=== PATIENT | female | born 1970 | race Caucasian/White ===

== ENCOUNTER → 2018-01-14 19:10 | Outpatient (CLI) | payer SELFPAY ==
[2018-01-19 03:07] LABS: HSV 1 By PCR Negative (Negative)
[2018-01-21 10:33] LABS: HSV 2 By PCR Positive (Negative)
== END ==
PROVIDERS: Family Provider Preventive Medicine Occupational Medicine; PCP Preventive Medicine Occupational Medicine; Visit Provider Obstetrics & Gynecology
DX: N94.89 Other specified conditions associated with female genital organs and menstrual cycle (principal); R30.0 Dysuria
CPT/HCPCS: 87086; 87529

== ENCOUNTER → 2018-08-22 10:26 | Outpatient (CLI) | payer BC, SELFPAY ==
--- NOTE | 2018-08-22 10:35 | RAD_ITS ---
STUDY: X-RAY - LUMBAR SPINE REASON FOR EXAM: Female, 48 years old. Low back pain TECHNIQUE: 5 view(s) of the lumbar spine were obtained. COMPARISON: 2015 FINDINGS: Normal lumbar lordosis. There is a rotatory scoliosis. There is a normal alignment of the vertebrae in the lateral view. Normal vertebral bodies and endplates. Mild disc space narrowing. There is no demonstrated fracture. The soft tissue structures are unremarkable. RAD/L/S Spine Min 4 Views IMPRESSION: Mild degenerative changes, no demonstrated fracture or suspicious osseous lesion Electronically Signed: Phil Koch MD at 10:21 EST , Service support ,
== END ==
LOC: RAD 10:32
PROVIDERS: Family Provider Preventive Medicine Occupational Medicine; PCP Preventive Medicine Occupational Medicine; Referring Provider Preventive Medicine Occupational Medicine; Visit Provider Preventive Medicine Occupational Medicine
DX: M51.36 Other intervertebral disc degeneration, lumbar region (principal)
CPT/HCPCS: 72110

== ENCOUNTER → 2018-09-11 07:51 | Outpatient (CLI) | payer BC, SELFPAY ==
--- NOTE | 2018-09-11 09:31 | NEURO_ITS ---
NCS and/or EMG Patient Report Ordering Doctor: Abhijit Luna DATE OF SERVICE: 09/11/18 Ashley Black is a 48 year old female presents for electrodiagnostic testing of the upper limbs. She has chief complaint of numbness in both hands, worse on the left side. Electrodiagnostic findings: Median motor nerve demonstrates prolonged distal latency with normal amplitude bilaterally. Reduced left median motor conduction velocity. Normal ulnar motor response bilaterally. Normal median and ulnar F- wave. Prolonged median sensory latencies noted bilaterally. Normal ulnar and radial sensory responses. Needle EMG testing shows no evidence of denervation with normal motor unit action potentials. Electrodiagnostic impression: This is an abnormal study in the upper limbs. 1. Electrodiagnostic findings demonstrate bilateral median mononeuropathy. This is consistent with a mild right carpal tunnel syndrome and a moderate left carpal tunnel syndrome. If there are any further questions, please do not hesitate to contact me.
== END ==
LOC: PSN 07:51
PROVIDERS: Family Provider Preventive Medicine Occupational Medicine; PCP Preventive Medicine Occupational Medicine; Referring Provider Preventive Medicine Occupational Medicine; Visit Provider Preventive Medicine Occupational Medicine
DX: G56.03 Carpal tunnel syndrome, bilateral upper limbs (principal)
CPT/HCPCS: 95886; 95913

== ENCOUNTER 2019-04-08 08:30 | Outpatient (RCR) | payer BC, SELFPAY ==
--- NOTE | 2019-02-24 10:09 | HP.OTEVAL_ITS ---
Patient's Visit Information ECHO ALBERTS is a 48 year old F, referred to Occupational Therapy by Buster Sandoval PA-C, with a diagnosis of left thumb cmc arthritis. Date of Evaluation: 02/21/19 Occupational Therapist: Darling Victor, GIORGIO/Corinne, CHT - Subjective Subjective: This 48 year old female was seen for OT eval following a left CMC arthroplasty / pt states she attempted conservative measures and they were not helpful. SX 01-24-19 cast removed today and pt is in need of custom orthosis to allow for CMC healing. Pt states she would like to return to her PLOF as soon as possible. - Pain left thumb 2 Pain Intensity Range: 0, 4 - Objective Objective/Observation: while pt resting UE in lap therapist noted wrist in a ulnar dev. with MP at slight hyper ext. when asked pt to place arm on table top pt needing placement as she must have been positioned with slight wrist ulnar dev. when therapist asked pt stated it was in cast that way, states her arm is not use to being free. - ROM CMC: right 25 left 15 MP: right 50 left 25 IP: right 70 left 45 - Quick DASH-Disab of Arm,Shoulder& Hand Quick DASH Score: 68.3325 - Goals Goal:100% adherence to protocol: Yes Comment: CMC arthroplasty Goal:Daily scar massage when approriate: Yes Goal:ROM equal to unaffected hand: Yes Goal:Medical Record Clerk/Pinch strength at least 75% of unaffected hand: Yes Goal:No pain with affected hand use: Yes Goal:Decrease scar hypersensitivity: Yes - Rehabilitation General Assessment: Pt demo with limited functional ROM, pain and weakness. Due to the limitations with pts left UE at this time requires more assistance with ADLs and IADLs. pt would benefit from skilled OT services 1-2 xweek for 6 weeks to return pts ROM and strength to return to her PLOF with use of left UE with ADLs and IADLs. Today therapist fabricated custom orthosis placing support over CMC, MP allowing for IP flex. pt instructed to use with heavy tasks, when she is out of the house and sleeping, as well as skin care and precausitons. pt demo understanding of use and precautions. pt ed. on AROM of wrist, forearm and digits, scar mtg and given handout. pt demo understanding of ex, orthosis use and precautions. pt agrees to POC. Rehabilitation Potential: Good - Anticipated Interventions Anticipated Interventions: A/AAROM/PROM, Strengthening, Scar Care, Triggerpoint Release, Desensitization, Modalities, Orthoses, Joint Protection/Energy Conservation, ADL Training - Visit Plan Frequency: 1-2x /Week Duration: 6 Weeks TEXT: Thank you for the opportunity to evaluate your patient. For Medicare and Medicare HMO plans, please review the plan of care and approve it. It will need to be FAXED BACK to us at [phone] for Medicare purposes. Please let me know if there are questions or concerns regarding this plan of care. Physician Signature: Date:
--- NOTE | 2019-04-08 08:52 | HP.OTDCSUM_ITS ---
HP - OT D/C Summary It has been my pleasure to treat ECHO ALBERTS under orders from Buster Sandoval PA-C, for the diagnosis of left thumb cmc arthritis for a total of 6 visit(s). Please see the following information for a summary of their discharge status. - Overall Improvement % Improvement: 80 - Objective Objective/Function: left attending pathologist 55# left attending pathologist strength 65#. Left IP 55* MP 35*. CMC 15*. pt report increase ind iwth ADLs and IADLS. pt was seen for 6 OT visit s- she gained functional ROM but continues to have a MP instability with pinch/use with left hand. At this time pt is not painful just a feeling of stiffness. - Goals Patient Goals: Regain Mobility, Regain Strength, Decrease Pain, Return to Work, Decrease Swelling/Stiffness, Use Hand/Wrist/Arm Normally Again Goal:100% adherence to protocol: Yes Goal:Daily scar massage when approriate: Yes Goal:ROM equal to unaffected hand: Yes Goal:Breaker Mechanic/Pinch strength at least 75% of unaffected hand: Yes Goal:No pain with affected hand use: Yes Goal:Decrease scar hypersensitivity: Yes - Plan Plan: pt D/C - D/C Information If there are questions or concerns regarding this patient's occupational therapy, please fell free to call me at [phone]. Thank you for the referral of this patient. Sincerely, Darling Victor, OTR/L, CHT
== END 2019-04-08 19:00 | disposition home or self-care (01) ==
LOC: OT 08:30
PROVIDERS: Family Provider Preventive Medicine Occupational Medicine; PCP Preventive Medicine Occupational Medicine; Referring Provider Physician Assistant Surgical; Visit Provider Physician Assistant Surgical
DX: M18.12 Unilateral primary osteoarthritis of first carpometacarpal joint, left hand (principal); G56.02 Carpal tunnel syndrome, left upper limb
CPT/HCPCS: 97035; 97110; 97140; 97166; 97168; 97760

== ENCOUNTER → 2020-10-25 07:15 | Outpatient (CLI) | payer BC, SELFPAY ==
[2020-10-11 08:25] VITALS: BMI 25.0
--- NOTE | 2020-10-25 07:16 | MRI_ITS ---
STUDY: MRI LUMBAR SPINE WITHOUT CONTRAST REASON FOR EXAM: Female, 50 years old. pain TECHNIQUE: Standardized fat and water weighted pulse sequences were obtained in the sagittal and axial planes. COMPARISON: 03/28/2016 FINDINGS: T12-L1: Normal endplates. Normal disc height, hydration and morphology. Normal bilateral facet joints. Normal central canal and bilateral lateral recesses. Normal bilateral intervertebral neural foramina. Normal lumbar lordosis. Mild levoscoliosis centered at L4. Normal conus medullaris that terminates at the L1/L2. Acute microtrabecular stress reaction of the pedicles of L4 and L5. L1-2: Normal endplates. Normal disc height, hydration and morphology. Normal bilateral facet joints. Normal central canal and bilateral lateral recesses. Normal bilateral intervertebral neural foramina. L2-3: Normal endplates. Normal disc height, hydration and morphology. Normal bilateral facet joints. Normal central canal and bilateral lateral recesses. Normal bilateral intervertebral neural foramina. L3-4: Normal endplates. Normal disc height, hydration and morphology. Normal bilateral facet joints. Normal central canal and bilateral lateral recesses. Normal bilateral intervertebral neural foramina. L4-5: Moderate bilateral facet hypertrophy with fluid in the facet joints consistent with instability and mild ligament flavum hypertrophy. No change in the moderate broad disc protrusion which produces moderate spinal stenosis with moderate bilateral lateral recess stenosis with abutment of the L5 nerve roots bilaterally and moderate bilateral neural foraminal stenosis with abutment of the exiting L4 nerve roots bilaterally. L5-S1: Status post posterior decompression. 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 5 mm of anterolisthesis of L5 on S1 consistent with grade 1 spondylolisthesis. Mild broad disc protrusion produces mild spinal stenosis relieved by posterior decompression and moderate bilateral neural foraminal stenosis which is unchanged when compared with the prior study. Normal visualized sacral ala. Normal visualized paraspinous soft tissue structures. MRI/Spine Lumbar (Routine) IMPRESSION: No change from 03/28/2016. Electronically Signed: Kane Grimes MD at 9:27 EDT Tel , Service support ,
== END ==
PROVIDERS: PCP Preventive Medicine Occupational Medicine; Referring Provider Orthopaedic Surgery; Visit Provider Orthopaedic Surgery
DX: M43.17 Spondylolisthesis, lumbosacral region (principal); M54.16 Radiculopathy, lumbar region; M54.5 Low back pain
CPT/HCPCS: 72148

== ENCOUNTER 2020-12-23 14:06 | Inpatient (IN) | payer BC, SELFPAY ==
--- NOTE | 2020-12-14 09:33 | EKG12_ITS ---
Test Reason : PRE-OP Blood Pressure : / mmHG Vent. Rate : 077 BPM Atrial Rate : 077 BPM P-R Int : 134 ms QRS Dur : 074 ms QT Int : 354 ms P-R-T Axes : 073 067 050 degrees QTc Int : 400 ms Normal sinus rhythm Normal ECG Confirmed by PAULA WU, COURT ([id number]), editor publications ANJELICA LUCAS ([id number]) on 12/15/2020 1:04:25 PM Referred By: Pelon Holt Confirmed By:COURT MITCHELL MD
[2020-12-14 10:45] LABS: Absolute Lymphocyte Count 1.73 X10^3/uL (0.83-4.51); Absolute Neutrophil Count 4.2 X10^3/uL (2.0-7.7); Basophil# 0.07 X10^3/uL; Basophil% 1.1 % (0-1); Eosinophil# 0.13 X10^3/uL; Hematocrit 38.6 % (37-47); Hemoglobin 12.4 g/dL (12.0-15.0); Lymphocyte # 1.73 X10^3/ul (0.83-4.51); Lymphocyte % 26.2 % (19-41); Mean Corp Hgb Conc 32.1 g/dL (32-36); Mean Corpuscular Hgb 30.6 pg (27.0-32.0); Mean Corpuscular Volume 95.3 fL (81-99); Mean Platelet Vol. 9.2 fl (6.2-12.0); Monocyte# 0.41 X10^3/uL; Monocyte% 6.2 % (0-10); NRBC Flagged by Analyzer 0 % (0-5); Neutrophil # 4.24 X10^3/uL (2.7-7.7); Neutrophil % 64.2 % (47-70); Platelet Count 381 K/mm3 (150-450); RBC Distribution Width CV 12.3 % (11.6-14.6); RBC Distribution Width SD 43.3 fl (35.1-43.9); Red Blood Count 4.05 M/mm3 (4.2-5.4); White Blood Count 6.6 K/mm3 (4.4-11.0)
[2020-12-14 11:10] LABS: Anion Gap 5 (5-15); BUN 10 mg/dL (7-18); BUN/Creat Ratio 10.1 RATIO (10-20); Calcium,Total 9.2 mg/dL (8.5-10.1); Chloride 107 mmol/L (98-107); Creatinine, Serum 0.99 mg/dL (0.55-1.02); EST Glomerular Filtration Rate 63 mL/min (>60); Est Glom Filt Rate - Afr Amer 76 mL/min (>60); Glucose 84 mg/dL (74-106); Potassium 4.1 mmol/L (3.5-5.1); Sodium Level 139 mmol/L (136-145)
[2020-12-14 11:15] LABS: Magnesium 2.1 mg/dL (1.6-2.6)
[2020-12-14 11:43] LABS: HIV - WCH Non-Reactive (Nonreactive)
[2020-12-15 08:46] VITALS: BMI 25.0
[2020-12-15 09:07] LABS: HEPATITIS B SURFACE AG Negative (Negative); Hepatitis A AB, Total Negative (Negative); Hepatitis A IgM Antibody Negative (Negative); Hepatitis B Core AB IgM Negative (Negative); Hepatitis B Core Ab Total Negative (Negative); Hepatitis C Ab <0.1 s/co ratio (0.0-0.9)
[2020-12-15 12:53] LABS: Hep B Surface Antibodies Non Reactive (.)
[2020-12-23] VITALS (15 sets, daily range): BP systolic 107–130; BP diastolic 55–95; PULSE 58–92; RESP 14–20; TEMP 36.1–36.9; O2SAT 98–100; BMI 23.6
[2020-12-23] MEDS: Lactated Ringers 1,000 ML 100 ML IV ×3 (06:00→15:29)
[2020-12-23] MEDS: Acetaminophen 500 MG Tablet 1000 MG PO (06:20)
[2020-12-23 07:01] LABS: Bedside Glucose 171 mg/dL (70-110)
--- NOTE | 2020-12-23 07:30 | RAD_ITS ---
STUDY: X-RAY - LUMBAR SPINE REASON FOR EXAM: Female, 50 years old. POSTERIOR FUSION L4-S1 TECHNIQUE: 2 view(s) of the lumbar spine were obtained. COMPARISON: None FINDINGS: Intraoperative imaging provided for posterior fusion. Posterior fusion at the L4 and S1 level. RAD/Lumbar Spine 2 or 3 Views IMPRESSION: Posterior fusion at the L4 and S1 level. Electronically Signed: Dutch Whitfield MD at 13:00 EDT , Service support ,
[2020-12-23] MEDS: Heparin 10,000 UNITS/10 ML Vial 10000 UNITS (07:35)
[2020-12-23] MEDS: THROMBIN (RECOMBINANT) 20,000 UNIT VIAL 20000 UNIT TOPICAL (08:00)
[2020-12-23] MEDS: Cefazolin 2 GM in 0.9% Normal Saline 100 ML IV (08:22)
--- NOTE | 2020-12-23 12:39 | OP.PCM_ITS ---
Report of Operation Date of Procedure: 12/23/20 Description of Procedure: Preoperative diagnosis: Failed L5-S1 fusion with instability Postoperative diagnosis: The same Procedures: #1 bilateral lateral fusion L5-S1 CPT code #11268 #2 internal pedicle fixation L5-S1 CPT code #52979 #3 internal pedicle fixation L4-5 CPT code #36444/51 #4 bilateral lateral fusion L4-5 CPT code #96403/51 Surgeon: Dr. Holt assistant store manager: ANA Sarmiento and Alisha PEREZ Anesthesia: General endotracheal anesthesia administered by [facility] Estimated blood loss: 125 cc Drains: None Complications: Dural leak Procedure: Patient was taken to the OR where she was placed under general endotracheal anesthesia was a Sims catheter was inserted and neuro monitoring established all their leads. The patient was then placed in the prone position on the Mundo frame on the Michael table. After appropriate positioning with care to protect her bony prominences her breasts her brachial plexus her ulnar nerves bilaterally her facial features the back was then prepped and draped in standard fashion. I then made a longitudinal incision near the old incision subcutaneous tissues were incised the length of the skin incision. We then began elevating the soft tissues on the left side off of the lamina of L for the lamina of L5 which was impossible to tell because of the old fusion and the lamina of S1 which again was full of of old fusion mass. Was in the midline where the dural leak was done as we released the soft tissues of the old open decompression small amount of CSF leakage was found. I simply closed it along with the scar tissue over the top of it and running fashion with 5-0 Prolene this completely stopped the leak. Continued on then elevated the paravertebral muscles off the bone mass at S1 at L5 and L4 using cautery the self-retaining super slide retractors were then put in place. Once in place I began identif trey all the landmarks or at least attempted to identify landmarks for the pedicle fixation note that there were no landmarks seen at L5 because of the old fusion and the fusion mass there was also no landmarks seen at S1 the only landmark but facet joint was seen at L4-5 and the transverse process was also observed. Knowing that this would be the easiest pedicle screw to insert we simply marked the area taken it intraoperative fluoroscopy that demonstrated that we had a good angle in the center of the pedicle. Decided to simply skip L5 altogether as there were no landmarks available. We did go down to the S1 pedicle as this was much larger of course and was able to identify it mainly by a guessing as to where he would be and then I broke the cortex with a bur and use the shifter under fluoroscopy to identify it. The screw was put in first. Once the insertion point was identified I used a 5 mm tap and entered with a 6.5 millimeter screw. Note that the we had neuro monitoring and of course the velocity was measured and was found to be quite satisfactory. I then moved back up to L4 on the left side on that predetermined point we then inserted the shifter was found to be in good position on fluoroscopy and I went ahead and tapped the hole with 5.5 millimeter screw note that this was a much smaller pedicle. Once the tap was done I then probed the hole to make sure there were no perforations of the wall which there were none. We then entered with the 5.540 mm screw. Again it was checked with the testing probe and was found to be satisfactory. We attempted to put screws on the opposite side however we were having trouble with the insertion point at L4 and even trouble with the insertion point of S1. We did S1 first and were able to tap it followed by probe which was satisfactory and insertion of the screw. Again it was tested by neuro monitoring was found to be satisfactory. Because of the rotoscoliosis our attempt to find the pedicle of 4 on the right side failed and in fact we actually broke the outer cortex a bit in our attempt to do so. We simply removed the S1 screw on the right side then and was satisfied just to have the fixation on the left side. We then prepared for the fusion by using the bur to bur the old fusion mass and the transverse processes of 4 bilaterally and the facets also. We then used SPARC bone in the gutters. On the old mass we used demineralized bone matrix sponges that were soaked in the patient's own stem cells. Note that these the stem cells were obtained from the patient's right iliac crest given the telecom field technician and spun down and concentrated and given back to us. We then placed these over the remaining old bone mass. Note that because of the dural leak we decided not to put a drain in but we had excellent hemostasis at the time. We did put placed DuraGen directly over the area where the leak had occurred however there was no more leaking of course. Nonetheless we covered it with the DuraGen and began closure. We then closed the lumbar fascia using [id number] suture with #1 Vicryl followed by closure of subcutaneous tissues with a 2-0 Vicryl and 0 Vicryl in interrupted fashion and the skin was approximated using skin clips. The patient was then recovered in the OR and was moved to her hospital bed and taken to recovery. This is Dr. Holt dictating thank you.
--- NOTE | 2020-12-23 12:40 | PCM.HP.BLA ---
History and Physical Date of Admission: 12/23/20 Intake Vital Signs 12/15/20 08:46 BMI 25.0 Intake Visit Reasons: lumbar spine Allergies No Known Allergies Allergy (Verified 12/09/20 13:32) Medications fluoxetine 20 mg capsule 20 mg PO DAILY 10/11/20 [History Confirmed 12/15/20] gabapentin 600 mg tablet 1,200 mg PO BID tablet 10/11/20 [History Confirmed 12/15/20] quetiapine 300 mg tablet 300 mg PO DAILY 10/11/20 [History Confirmed 12/15/20] PFSH Medical History (Updated 12/15/20 @ 09:[address] Pelon Holt, DO) Back pain Bipolar disorder h/o teeth removal Injury of back Sjogren's syndrome Wears dentures Surgical History (Updated 10/11/20 @ 09:05 by Diamante Hale) H/O hand surgery H/O: hysterectomy History of lumbar fusion Social History (Updated 10/27/20 @ 13:[address] Pelon Holt, DO) household members: spouse Smoking Status: Never smoker alcohol intake: never what type of physical activity do you participate in: none do you feel safe at home: Yes HPI lumbar spine Details: Parts of this documentation were recorded by a scribe, this documentation accurately reflects the service provided and the decisions made by me, Dr. Pelon Holt, DO 12/15/20 0845. ASHLEY ALBERTS is a 50 year old F here today for F/U on low back pain and she is here to further discuss surgery. She continues to have mid back pain that radiates down the right leg to about her mid gutierrez. Does have some numbness or tingling. Denies any changes in medications or allergies. Ashley returns for follow-up and preop. We discussed the surgery at length what to expect including recovery etc. She is scheduled for surgery on the . We will do an L4-S1 fusion with pedicle fixation. She will need no decompression as she hardly has any leg pain. I suspect that she broke her fusion because she was doing very well prior to her hard fall on the ice in August of this year. We talked about possible risks and complications associated with the surgery including the possibility of , paralysis infection meningitis failed to relieve the symptoms blood clot in the legs blood clot in the lungs myocardial infarction stroke among others. I answered all her questions I will see her again at surgery. Planned procedures: #1 bilateral lateral fusion L5-S1 CPT code #57543 #2 internal pedicle fixation L5-S1 CPT code #92076 #3 internal pedicle fixation L4-5 CPT code #71977/51 #4 bilateral lateral fusion L4-5 CPT code #84157/51 Past medical history: Is already documented in this chart. Review of systems: Is already documented in this chart. Physical examination: Examination of the head reveals that she is normocephalic there are no lesions noted. Examination of the eyes reveals that pupils are equally reactive to light and accommodation extraocular muscles appear intact. Examination of the neck reveals that the trachea is midline and movable there are no masses palpated there is no lymphadenopathy and there is no tenderness. Auscultation of the chest reveals that she is clear in all lung aponte with no adventitious sounds. Auscultation of the heart demonstrates a normal rate and rhythm without murmurs. Palpation of the abdomen reveals it is soft and nontender there are no masses palpated and there is no organomegaly. Examination of the genitalia and breasts was waived. Neurologic exam reveals the cranial nerves II through XII were grossly intact. Examination of the peripheral nervous system demonstrates that she has excellent motor strength in all the major muscle groups of both upper and lower extremities with normal reflexes and no long tract signs. Impression: Broken L5-S1 fusion with grade 1 spondylolisthesis and instability in a degenerated disc at L4-5. Coding Level of Care Code Off vis,est,level 2 Diagnoses Spondylolisthesis of lumbosacral region M43.17 Time Spent (min) 20 Assessment and Plan Assessment and Plan (1) Spondylolisthesis of lumbosacral region: Status: Acute I have re-examined the patient. There are no clinical changes since date of exam.
--- NOTE | 2020-12-23 15:05 | PN.HOSP_ITS ---
Subjective Subjective Consult from Dr. Holt for post-op medical mgmt. Currently, patient is fairly comfortable post-op. Unfortunately on bed rest. Pain is currently tolerable. Objective Data Objective Data Vital Signs: Vital Signs Temp Pulse Resp BP Pulse Ox 36.5 C L 66 18 122/82 H 99 12/23/20 14:48 12/23/20 14:48 12/23/20 14:48 12/23/20 14:48 12/23/20 14:48 Oxygen Flow Rate (L/min) 6 Oxygen Delivery Method Room Air Weight: 68.4 kg Body Mass Index (BMI) 23.6 Intake & Output: Intake and Output for Last 24 Hours 12/21/20 12/22/20 12/23/20 23:59 23:59 23:59 Intake Total 1214.5 / 1214.5 Output Total 385 / 385 Balance 829.5 / 829.5 Lab / Micro Data Result Diagrams: 12/14/20 09:49 12/14/20 09:49 Labs: Laboratory Results - last 24 hr 12/23/20 06:16 POC Glucose 171 H Micro: Microbiology 12/22/20 08:30 Interface Orders SARS-CoV-2 Antigen (Rapid) - Final 12/15/20 09:25 Interface Orders Nasal Screen MRSA/MSSA - Final Radiography Diagnostic Testing: Radiology Impression Lumbar Spine X-Ray 12/23/20 07:30 IMPRESSION: Posterior fusion at the L4 and S1 level. Electronically Signed: Dutch Whitfield MD at 13:00 EDT , Service support , Physical Exam Const alert and oriented x3 HEENT Head and Scalp: normocephalic Neck no lymphadenopathy Resp normal respiratory effort and no use of accessory muscles Cardio regular rate, regular rhythm, S1 normal heart sound and S2 normal heart sound GI normal to inspection, nondistended, normoactive bowel sounds, non-tender and non-distended Extremity normal to inspection Neuro Sensorium / Orientation: awake and alert Psych affect normal Assessment & Plan Assessment/Plan (1) Spondylolisthesis of lumbosacral region: PLAN: 1. Status post bilateral lateral fusion of L5-S1 * Postop day #0 * Management per spine surgery * Currently on bedrest * Patient did receive 20 mg of IV dexamethasone 2. Sjogren's syndrome * Stable * Patient is not on any medications for this * Supportive management * May consider eyedrops as needed or Biotene mouthwash as needed for symptoms associated with this. 3. VTE prophylaxis with SCDs Thank for the consult. The hospital service will follow during this hospitalization. Charges/Coding Visit Charges Inpatient E&M: 13221 Subs Hosp L2
[2020-12-23] MEDS: 0.9% Saline Lock 10 ML Syringe IV ×2 (15:36→18:28)
[2020-12-23] MEDS: Morphine 4 MG/ML Syringe IV ×2 (15:36→18:28)
[2020-12-23] MEDS: Ensure Surgery 237 ML LIQUID PO (16:34)
[2020-12-23] MEDS: Cefazolin 1 GM/50 ML BAG IV ×2 (16:34→23:41)
[2020-12-23] MEDS: oxyCODONE 5 MG Tablet PO ×2 (17:00→22:05)
[2020-12-23] MEDS: diazePAM 5 MG Tablet PO (17:00)
[2020-12-23] MEDS: DiphenhydrAMINE 25 MG Capsule PO (20:57)
[2020-12-23] MEDS: Gabapentin 600 MG Tablet 1200 MG PO (22:06)
[2020-12-23] MEDS: Senna/Docusate Sodium 1 Tablet 2 TABLET PO (22:07)
[2020-12-23] MEDS: Famotidine 20 MG Tablet PO (22:07)
[2020-12-23] MEDS: Zolpidem Tartrate 5 MG Tablet PO (23:39)
[2020-12-24] VITALS (9 sets, daily range): BP systolic 89–131; BP diastolic 46–84; PULSE 81–122; RESP 16–28; TEMP 37.2–37.8; O2SAT 98–100
[2020-12-24] MEDS: diazePAM 5 MG Tablet PO ×2 (01:04→07:21)
[2020-12-24] MEDS: QUEtiapine 100 MG Tablet 300 MG PO ×2 (01:30→23:14)
[2020-12-24] MEDS: oxyCODONE 5 MG Tablet PO ×3 (06:11→17:21)
--- NOTE | 2020-12-24 07:57 | NURSING ---
This nurse aware that Blood sugar was 84 with morning labs.
[2020-12-24] MEDS: Ensure Surgery 237 ML LIQUID PO ×2 (09:12→12:47)
[2020-12-24] MEDS: Gabapentin 600 MG Tablet 1200 MG PO ×2 (09:13→23:15)
[2020-12-24] MEDS: Senna/Docusate Sodium 1 Tablet 2 TABLET PO ×2 (09:13→23:15)
[2020-12-24] MEDS: Famotidine 20 MG Tablet PO ×2 (09:13→23:13)
[2020-12-24] MEDS: FLUoxetine 20 MG Capsule PO (09:13)
[2020-12-24] MEDS: DiphenhydrAMINE 25 MG Capsule PO ×3 (09:21→23:15)
[2020-12-24] MEDS: Morphine 4 MG/ML Syringe IV ×3 (09:22→21:03)
--- NOTE | 2020-12-24 10:45 | CASEMGMT ---
RN GABE Assessment: Face to Face with pt for initial transition planning/care coordination assessment. RN CM introduced self and role at [facility], pt voices understanding and consents to assessment. Pt is A/O x4 and answers all questions appropriately at this time.Pt lying flat in bed as she is on BR in no distress. Care providers, pharmacy, and demographics verified/updated. Admitting Dx: post fusion fixation L4-S1 PCP: Cheryl Specialists: Jonathon, surgeon Preferred Pharmacy: [facility] Insurance: [employer] Prescription Benefit: yes LW/HPOA: Pt denies having a LW/DPOA. LNOK: William Black, ; Elysia Long, mother Living Arrangements: Pt lives with her in a single story house with 3 steps to enter. Pt states normally she is I in ADL's and denies concerns at home. Transportation: Pt normally drives self and denies concerns with transportation. DME/HHC/SNF: Pt denies having any DME, prior history of HH or SNF stay. Pt states she is temporarily going to stay with her mother at time of dc as her works nights. States her mother's home will be easy to access as well as her own. Pt states no further concerns/needs. CM to follow. Advised pt to ask CM if any further question/concerns/needs arise, voices understanding. Pt Goal: Mother's home Plan: Mother's home with family support
[2020-12-24] MEDS: Ondansetron 4 MG/2 ML Vial IV ×2 (12:53→21:03)
[2020-12-24] MEDS: 0.9% Saline Lock 10 ML Syringe IV ×2 (12:53→15:54)
[2020-12-24] MEDS: Calcium Carbonate 500 MG Tablet PO (14:22)
--- NOTE | 2020-12-24 15:18 | PN.HOSP_ITS ---
Subjective Subjective Patient was seen and examined. She complains of abdominal bloatedness. She has not moved her bowels. She denied any fever or chills. Her pain is fairly controlled. Objective Data Objective Data Vital Signs: Vital Signs Temp Pulse Resp BP Pulse Ox 99.7 F H 111 H 28 H 115/46 L 100 12/24/20 14:26 12/24/20 14:26 12/24/20 14:26 12/24/20 14:26 12/24/20 14:26 Oxygen Flow Rate (L/min) 6 Oxygen Delivery Method Room Air Weight: 68.4 kg Body Mass Index (BMI) 23.6 Intake & Output: Intake and Output for Last 24 Hours 12/22/20 12/23/20 12/24/20 23:59 23:59 23:59 Intake Total 3049.49 / 3049.49 1733.33 / 1733.33 Output Total 2685 / 2685 2100 / 2100 Balance 364.49 / 364.49 -366.67 / -366.67 Lab / Micro Data Result Diagrams: 12/14/20 09:49 12/14/20 09:49 Micro: Microbiology 12/22/20 08:30 Interface Orders SARS-CoV-2 Antigen (Rapid) - Final 12/15/20 09:25 Interface Orders Nasal Screen MRSA/MSSA - Final Physical Exam Narrative General: Alert, Oriented x3, Cooperative, No apparent distress, appears anxious HEENT: Atraumatic, PERRLA, EOMI, Normocephalic Oral: Moist Mucosa Neck: Supple Lungs: Normal air movement, Diminished Cardiovascular: Regular rate, Regular Rhythm, Normal S1, Normal S2, No murmurs Abdomen: Bowel Sounds hypoactive, Soft, mild generalised tenderness, no hepato- splenomegaly Extremities: No edema Assessment & Plan Assessment/Plan (1) Spondylolisthesis of lumbosacral region: (2) Ileus: PLAN: 1. POD #1 status post bilateral lateral fusion of L5-S1 Continue with pain control, continue according to neurosurgery recommendations 2. Ileus, postop, will get KUB, keep n.p.o., IV fluids 3. Sjogren's syndrome, continue eye drops Charges/Coding Visit Charges Inpatient E&M: 38923 Subs Hosp L2
[2020-12-24] MEDS: 0.9% Normal Saline 1,000 ML 75 ML IV (15:49)
--- NOTE | 2020-12-24 15:59 | NURSING ---
Dr. Holt is in the room at this time and updated him on recent temp climbing of 99.5 now to 100.1 and recent vital signs. He also is aware of dr. Marley's orders of npo and kub. Dr. Holt is aware that there are Bowel Sounds x4 qauds, no flatus since surgery and abd is distended. Dr. Holt looked at [facility] at this time.
--- NOTE | 2020-12-24 16:18 | RAD_ITS ---
STUDY: X-RAY - ABDOMEN/PELVIS REASON FOR EXAM: Female, 50 years old. Abdominal distension -- Patient needs to lie flat per Neurosurgery TECHNIQUE: Supine and decubitus views of the abdomen and pelvis COMPARISON: None. FINDINGS: Gaseous dilated loops of small large bowel with fecal retention in the right hemicolon. Postoperative changes with midline surgical clips. Likely postoperative ileus and less likely obstruction. RAD/Abd Decub and/or Erect(Portabl IMPRESSION: Likely postoperative ileus with fecal retention in the right hemicolon. No evidence of free air. Electronically Signed: Justice Onofre DO at 22:43 EDT Tel , Service support ,
--- NOTE | 2020-12-24 16:19 | PN.ORTHO_ITS ---
Objective Data Objective Data Vital Signs: Vital Signs Temp Pulse Resp BP Pulse Ox 100.1 F H 108 H 22 H 128/77 H 98 12/24/20 15:56 12/24/20 15:56 12/24/20 15:56 12/24/20 15:56 12/24/20 15:56 Oxygen Flow Rate (L/min) 6 Oxygen Delivery Method Room Air Weight: 150 lb 12.739 oz Body Mass Index (BMI) 23.6 Intake & Output: Intake and Output for Last 24 Hours 12/22/20 12/23/20 12/24/20 23:59 23:59 23:59 Intake Total 3049.49 / 3049.49 1733.33 / 1733.33 Output Total 2685 / 2685 2100 / 2100 Balance 364.49 / 364.49 -366.67 / -366.67 Lab / Micro Data Result Diagrams: 12/14/20 09:49 12/14/20 09:49 Micro: Microbiology 12/22/20 08:30 Interface Orders SARS-CoV-2 Antigen (Rapid) - Final 12/15/20 09:25 Interface Orders Nasal Screen MRSA/MSSA - Final
--- NOTE | 2020-12-24 16:21 | PCM.PN.ORT ---
Subjective Subjective Postop day #1: The patient's main complaint and that of her nurse is that her abdomen is distended. It started early this morning and has gotten perhaps a bit worse now. I suspect that it perhaps is an early ileus. We are about to get a KUB on her. She definitely has air I can tell from palpation. Numbness neurologically she is intact her back of course is is painful is suspected. Dressing is dry. Had a dural leak during the surgery which is why she is flat in bed. I might get her up as early as tomorrow if not it will be Sunday. We will keep an eye on her and her ileus if it indeed is only an ileus. I will see her again tomorrow morning. Objective Data Objective Data Vital Signs: Vital Signs Temp Pulse Resp BP Pulse Ox 100.1 F H 108 H 22 H 128/77 H 98 12/24/20 15:56 12/24/20 15:56 12/24/20 15:56 12/24/20 15:56 12/24/20 15:56 Oxygen Flow Rate (L/min) 6 Oxygen Delivery Method Room Air Weight: 150 lb 12.739 oz Body Mass Index (BMI) 23.6 Intake & Output: Intake and Output for Last 24 Hours 12/22/20 12/23/20 12/24/20 23:59 23:59 23:59 Intake Total 3049.49 / 3049.49 1733.33 / 1733.33 Output Total 2685 / 2685 2100 / 2100 Balance 364.49 / 364.49 -366.67 / -366.67 Lab / Micro Data Result Diagrams: 12/14/20 09:49 12/14/20 09:49 Micro: Microbiology 12/22/20 08:30 Interface Orders SARS-CoV-2 Antigen (Rapid) - Final 12/15/20 09:25 Interface Orders Nasal Screen MRSA/MSSA - Final
[2020-12-25 03:17] VITALS: BP 112/61; PULSE 117; RESP 18; TEMP 37.1; O2SAT 97
[2020-12-25 03:25] VITALS: PULSE 117
[2020-12-25] MEDS: oxyCODONE 5 MG Tablet PO (03:31)
[2020-12-25 05:51] VITALS: PULSE 115
[2020-12-25] MEDS: 0.9% Normal Saline 1,000 ML 75 ML IV ×2 (06:12→18:19)
[2020-12-25] MEDS: Morphine 4 MG/ML Syringe IV ×6 (06:40→22:52)
[2020-12-25 07:26] LABS: Absolute Lymphocyte Count 2.37 X10^3/uL (0.83-4.51); Absolute Neutrophil Count 5.3 X10^3/uL (2.0-7.7); Basophil# 0.03 X10^3/uL; Basophil% 0.3 % (0-1); Eosinophil# 0.05 X10^3/uL; Eosinophils% 0.6 % (0-5); Hematocrit 34.3 % (37-47); Lymphocyte # 2.37 X10^3/ul (0.83-4.51); Lymphocyte % 27.2 % (19-41); Mean Corp Hgb Conc 32.1 g/dL (32-36); Mean Corpuscular Hgb 30.6 pg (27.0-32.0); Mean Corpuscular Volume 95.5 fL (81-99); Mean Platelet Vol. 9.1 fl (6.2-12.0); Monocyte# 0.92 X10^3/uL; Monocyte% 10.6 % (0-10); NRBC Flagged by Analyzer 0 % (0-5); Neutrophil # 5.31 X10^3/uL (2.7-7.7); Neutrophil % 60.8 % (47-70); Platelet Count 266 K/mm3 (150-450); RBC Distribution Width CV 12.2 % (11.6-14.6); RBC Distribution Width SD 42.7 fl (35.1-43.9); Red Blood Count 3.59 M/mm3 (4.2-5.4); White Blood Count 8.7 K/mm3 (4.4-11.0)
[2020-12-25 07:45] LABS: ALB/GLOB Ratio 0.8 RATIO (0.9-2.4); AST(SGOT) 24 U/L (15-37); Alanine Aminotransfer ALT/SGPT 16 U/L (13-56); Albumin, Serum 2.8 g/dL (3.2-5.0); Alkaline Phosphatase 94 U/L (45-117); Anion Gap 4 (5-15); BUN 9 mg/dL (7-18); BUN/Creat Ratio 12.8 RATIO (10-20); Calcium,Total 8.7 mg/dL (8.5-10.1); Chloride 105 mmol/L (98-107); EST Glomerular Filtration Rate 93 mL/min (>60); Est Glom Filt Rate - Afr Amer 113 mL/min (>60); Globulin 3.3 g/dL (2.2-4.2); Glucose 109 mg/dL (74-106); Potassium 3.9 mmol/L (3.5-5.1); Protein, Total 6.1 g/dL (6.4-8.2); Sodium Level 137 mmol/L (136-145)
[2020-12-25 08:00] VITALS: BP 123/63; PULSE 114; RESP 16; TEMP 37.1; O2SAT 95
[2020-12-25] MEDS: Ondansetron 4 MG/2 ML Vial IV (08:06)
--- NOTE | 2020-12-25 09:48 | PN.HOSP_ITS ---
Subjective Subjective Patient was seen and examined. Has some abdominal discomfort. Abdominal distention is slightly better but still persistent. Objective Data Objective Data Vital Signs: Vital Signs Temp Pulse Resp BP Pulse Ox 98.7 F 114 H 16 123/63 H 95 12/25/20 08:00 12/25/20 08:00 12/25/20 08:00 12/25/20 08:00 12/25/20 08:00 Oxygen Flow Rate (L/min) 6 Oxygen Delivery Method Room Air Weight: 68.4 kg Body Mass Index (BMI) 23.6 Intake & Output: Intake and Output for Last 24 Hours 12/23/20 12/24/20 12/25/20 23:59 23:59 23:59 Intake Total 3049.49 / 3049.49 2144.58 / 2144.58 1133.75 / 1133.75 Output Total 2685 / 2685 2900 / 2900 1000 / 1000 Balance 364.49 / 364.49 -755.42 / -755.42 133.75 / 133.75 Lab / Micro Data Result Diagrams: 12/25/20 06:46 12/25/20 06:46 Labs: Laboratory Results - last 24 hr 12/25/20 12/25/20 06:46 06:46 WBC 8.7 RBC 3.59 L Hgb 11.0 L Hct 34.3 L MCV 95.5 MCH 30.6 MCHC 32.1 RDW Std Deviation 42.7 RDW Coeff of Nohelia 12.2 Plt Count 266 MPV 9.1 Immature Gran % (Auto) 0.500 Neut % (Auto) 60.8 Lymph % (Auto) 27.2 [place] % (Auto) 10.6 H Eos % (Auto) 0.6 Baso % (Auto) 0.3 Absolute Neuts (auto) 5.3 Absolute Lymphs (auto) 2.37 Nucleated RBC % 0 Sodium 137 Potassium 3.9 Chloride 105 Carbon Dioxide 28.0 Anion Gap 4 L BUN 9 Creatinine 0.70 Estim Creat Clear Calc 93.50 Est GFR (MDRD) Af Amer 113 Est GFR (MDRD) Non-Af 93 BUN/Creatinine Ratio 12.8 Glucose 109 H Calcium 8.7 Total Bilirubin 0.70 AST 24 ALT 16 Alkaline Phosphatase 94 Total Protein 6.1 L Albumin 2.8 L Globulin 3.3 Albumin/Globulin Ratio 0.8 L Micro: Microbiology 12/22/20 08:30 Interface Orders SARS-CoV-2 Antigen (Rapid) - Final 12/15/20 09:25 Interface Orders Nasal Screen MRSA/MSSA - Final Radiography Diagnostic Testing: Radiology Impression Abdomen X-Ray 12/24/20 16:18 IMPRESSION: Likely postoperative ileus with fecal retention in the right hemicolon. No evidence of free air. Electronically Signed: Justice Onofre at 22:43 EDT Tel , Service support , Physical Exam Narrative General: Alert, Oriented x3, Cooperative, No apparent distress, appears anxious HEENT: Atraumatic, PERRLA, EOMI, Normocephalic Oral: Moist Mucosa Neck: Supple Lungs: Normal air movement, Diminished Cardiovascular: Regular rate, Regular Rhythm, Normal S1, Normal S2, No murmurs Abdomen: Bowel Sounds hypoactive, Soft, mild generalised tenderness, no hepato- splenomegaly Extremities: No edema Assessment & Plan Assessment/Plan (1) Spondylolisthesis of lumbosacral region: (2) Ileus: PLAN: 1. POD #2 status post bilateral lateral fusion of L5-S1, pain is f airly controlled Continue with pain control, continue according to neurosurgery recommendations 2. Ileus, postop, on clear liquid diet, will continue to monitor 3. Constipation, fecal retention seen in the right hemicolon, will give an enema, continue on stool softners 3. Sjogren's syndrome, continue eye drops Charges/Coding Visit Charges Inpatient E&M: 20946 Subs Hosp L2
[2020-12-25 14:10] VITALS: BP 126/69; PULSE 97; RESP 16; TEMP 36.7; O2SAT 95
[2020-12-25] MEDS: Bisacodyl 10 MG Suppository RC (14:20)
[2020-12-25] MEDS: Famotidine 20 MG Tablet PO ×2 (14:24→22:56)
[2020-12-25] MEDS: FLUoxetine 20 MG Capsule PO (14:24)
--- NOTE | 2020-12-25 16:31 | PN.ORTHO_ITS ---
Objective Data Objective Data Vital Signs: Vital Signs Temp Pulse Resp BP Pulse Ox 98.0 F 97 16 126/69 H 95 12/25/20 14:10 12/25/20 14:10 12/25/20 14:10 12/25/20 14:10 12/25/20 14:10 Oxygen Flow Rate (L/min) 6 Oxygen Delivery Method Room Air Weight: 150 lb 12.739 oz Body Mass Index (BMI) 23.6 Intake & Output: Intake and Output for Last 24 Hours 12/23/20 12/24/20 12/25/20 23:59 23:59 23:59 Intake Total 3049.49 / 3049.49 2144.58 / 2144.58 1253.75 / 1253.75 Output Total 2685 / 2685 2900 / 2900 1500 / 1500 Balance 364.49 / 364.49 -755.42 / -755.42 -246.25 / -246.25 Lab / Micro Data Result Diagrams: 12/25/20 06:46 12/25/20 06:46 Labs: Laboratory Results - last 24 hr 12/25/20 12/25/20 06:46 06:46 WBC 8.7 RBC 3.59 L Hgb 11.0 L Hct 34.3 L MCV 95.5 MCH 30.6 MCHC 32.1 RDW Std Deviation 42.7 RDW Coeff of Nohelia 12.2 Plt Count 266 MPV 9.1 Immature Gran % (Auto) 0.500 Neut % (Auto) 60.8 Lymph % (Auto) 27.2 [place] % (Auto) 10.6 H Eos % (Auto) 0.6 Baso % (Auto) 0.3 Absolute Neuts (auto) 5.3 Absolute Lymphs (auto) 2.37 Nucleated RBC % 0 Sodium 137 Potassium 3.9 Chloride 105 Carbon Dioxide 28.0 Anion Gap 4 L BUN 9 Creatinine 0.70 Estim Creat Clear Calc 93.50 Est GFR (MDRD) Af Amer 113 Est GFR (MDRD) Non-Af 93 BUN/Creatinine Ratio 12.8 Glucose 109 H Calcium 8.7 Total Bilirubin 0.70 AST 24 ALT 16 Alkaline Phosphatase 94 Total Protein 6.1 L Albumin 2.8 L Globulin 3.3 Albumin/Globulin Ratio 0.8 L Micro: Microbiology 12/22/20 08:30 Interface Orders SARS-CoV-2 Antigen (Rapid) - Final 12/15/20 09:25 Interface Orders Nasal Screen MRSA/MSSA - Final Radiography Diagnostic Testing: Radiology Impression Abdomen X-Ray 12/24/20 16:18 IMPRESSION: Likely postoperative ileus with fecal retention in the right hemicolon. No evidence of free air. Electronically Signed: Justice Onofre, DO at 22:43 EDT Tel , Service support , Procedure Criteria Elective Risks - COVID COVID Risk Discussion: Postop day #2. Patient is doing better today than yesterday. She actually has some flatulence now that she has not had before. Her back abdomen is still distended. Let her get up today and therapy actually ambulated her. Did fine getting up and was glad to do so. She has not had a spinal headache. Her legs are doing good and she has no leg pain. She states that her back pains not too bad now. I told her she would be able to be home as soon as the ileus is completely cleared. Until then I will have to keep her in the hospital. And her drink clear liquids. At this point progress is satisfac tory. Neurologically she is intact in both lower extremities.
[2020-12-25] MEDS: Acetaminophen 325 MG Tablet 650 MG PO (17:40)
[2020-12-25 22:50] VITALS: BP 110/67; PULSE 83; RESP 18; TEMP 36.9; O2SAT 97
[2020-12-25] MEDS: QUEtiapine 100 MG Tablet 300 MG PO (22:56)
[2020-12-25] MEDS: Gabapentin 600 MG Tablet 1200 MG PO (22:57)
[2020-12-26 03:30] VITALS: BP 114/58; PULSE 105; RESP 16; TEMP 37.4; O2SAT 94
[2020-12-26] MEDS: Morphine 4 MG/ML Syringe IV (03:40)
[2020-12-26] MEDS: 0.9% Normal Saline 1,000 ML 75 ML IV ×2 (07:42→22:02)
[2020-12-26] MEDS: oxyCODONE 5 MG Tablet PO ×3 (07:58→18:19)
[2020-12-26] MEDS: Acetaminophen 325 MG Tablet 650 MG PO ×3 (07:58→18:20)
[2020-12-26] MEDS: Ensure Surgery 237 ML LIQUID PO (07:59)
[2020-12-26] MEDS: DiphenhydrAMINE 25 MG Capsule PO ×3 (08:19→22:02)
--- NOTE | 2020-12-26 08:44 | PN.HOSP_ITS ---
Subjective Subjective Patient was seen and examined. She has had 1 bowel movement. Still has significant abdominal discomfort from distention. No nausea or vomiting. She has been ambulating. Denies any fever or chills. Objective Data Objective Data Vital Signs: Vital Signs Temp Pulse Resp BP Pulse Ox 99.3 F H 105 H 16 114/58 L 94 12/26/20 03:30 12/26/20 03:30 12/26/20 03:30 12/26/20 03:30 12/26/20 03:30 Oxygen Flow Rate (L/min) 6 Oxygen Delivery Method Room Air Weight: 68.4 kg Body Mass Index (BMI) 23.6 Intake & Output: Intake and Output for Last 24 Hours 12/24/20 12/25/20 12/26/20 23:59 23:59 23:59 Intake Total 2144.58 / 2144.58 2402.50 / 2402.50 1000 / 1000 Output Total 2900 / 2900 1575 / 1575 Balance -755.42 / -755.42 827.50 / 827.50 1000 / 1000 Lab / Micro Data Result Diagrams: 12/25/20 06:46 12/25/20 06:46 Micro: Microbiology 12/22/20 08:30 Interface Orders SARS-CoV-2 Antigen (Rapid) - Final 12/15/20 09:25 Interface Orders Nasal Screen MRSA/MSSA - Final Physical Exam Narrative General: Alert, Oriented x3, Cooperative, No apparent distress, appears anxious HEENT: Atraumatic, PERRLA, EOMI, Normocephalic Oral: Moist Mucosa Neck: Supple Lungs: Normal air movement, Diminished Cardiovascular: Regular rate, Regular Rhythm, Normal S1, Normal S2, No murmurs Abdomen: Bowel Sounds hypoactive, Soft, mild generalised tenderness, no hepato- splenomegaly Extremities: No edema Assessment & Plan Assessment/Plan (1) Spondylolisthesis of lumbosacral region: (2) Ileus: PLAN: Summary: Consult for postop medical management -status post bilateral lateral fusion of L5-S1 1. POD #3, status post bilateral lateral fusion of L5-S1, pain is fairly controlled Continue with pain control, continue according to neurosurgery recommendations 2. Ileus, postop, persistent, will keep NPO, get KUB, continue on IV fluids 3. Constipation, fecal retention seen in the right hemicolon, resolving Continue on stool softners 4. Sjogren's syndrome, continue eye drops Charges/Coding Visit Charges Inpatient E&M: 69235 Subs Hosp L2
[2020-12-26 09:30] VITALS: BP 99/59; PULSE 110; RESP 18; TEMP 36.6; O2SAT 100
--- NOTE | 2020-12-26 10:22 | RAD_ITS ---
EXAM: XR ABDOMEN, 2 VIEWS : 1970 CLINICAL INDICATION: persistent ileus TECHNIQUE: Frontal view of the abdomen/pelvis with upright view of the abdomen. This report was created using [employer] report generation technology. COMPARISON: 12/24/2020 FINDINGS: LOWER THORAX: No acute pathology. INTRAPERITONEAL SPACE: No free air. GASTROINTESTINAL TRACT: There is gas seen with in the colon. There is essentially no gas-filled loops of small bowel. Non-obstructive. No bowel or stomach distention. ORGANS: Unremarkable as visualized. No organomegaly. No abnormal calcifications. BONES/JOINTS: Peak hardware is seen in the lower lumbar spine from a recent fusion. SOFT TISSUES: No acute pathology. RAD/Abd Decub and/or Erect(Portabl IMPRESSION: Gas seen within the colon with no gas-filled loops of small bowel on this exam. at 1042 Reported and signed by: Maycol Rachel MD Electronically Signed: Maycol Rachel MD at 10:41 EDT Tel , Service support ,
[2020-12-26] MEDS: Bisacodyl 10 MG Suppository RC (10:55)
[2020-12-26] MEDS: Gabapentin 600 MG Tablet 1200 MG PO ×2 (10:56→21:57)
[2020-12-26] MEDS: FLUoxetine 20 MG Capsule PO (10:56)
[2020-12-26] MEDS: Famotidine 20 MG Tablet PO ×2 (10:57→21:57)
[2020-12-26] MEDS: Senna/Docusate Sodium 1 Tablet 2 TABLET PO (10:57)
[2020-12-26 15:23] VITALS: BP 118/63; PULSE 82; RESP 18; TEMP 37.1; O2SAT 98
--- NOTE | 2020-12-26 16:44 | NURSING ---
DR HERNANDEZ PHONED IN TO GET UPDATE ON PT
[2020-12-26 21:55] VITALS: BP 104/61; PULSE 76; RESP 18; TEMP 37; O2SAT 97
[2020-12-26] MEDS: 0.9% Saline Lock 10 ML Syringe IV (21:56)
[2020-12-26] MEDS: QUEtiapine 100 MG Tablet 300 MG PO (21:57)
[2020-12-27 03:28] VITALS: BP 135/67; PULSE 94; RESP 16; TEMP 36.9; O2SAT 95
[2020-12-27] MEDS: oxyCODONE 5 MG Tablet PO ×4 (03:48→17:39)
[2020-12-27 08:18] VITALS: BP 124/80; PULSE 83; RESP 16; TEMP 36.9; O2SAT 97
[2020-12-27] MEDS: Ensure Surgery 237 ML LIQUID PO ×3 (08:28→17:34)
[2020-12-27] MEDS: Acetaminophen 325 MG Tablet 650 MG PO ×3 (08:28→21:14)
[2020-12-27] MEDS: 0.9% Saline Lock 10 ML Syringe IV ×2 (08:29→17:39)
[2020-12-27] MEDS: Gabapentin 600 MG Tablet 1200 MG PO ×2 (08:29→21:09)
[2020-12-27] MEDS: FLUoxetine 20 MG Capsule PO (08:29)
[2020-12-27] MEDS: Senna/Docusate Sodium 1 Tablet 2 TABLET PO ×2 (08:29→21:10)
[2020-12-27] MEDS: Famotidine 20 MG Tablet PO ×2 (08:29→21:10)
[2020-12-27] MEDS: Bisacodyl 10 MG Suppository RC ×2 (08:29→21:10)
[2020-12-27] MEDS: DiphenhydrAMINE 25 MG Capsule PO ×3 (09:45→21:13)
[2020-12-27] MEDS: 0.9% Normal Saline 1,000 ML 75 ML IV (11:04)
[2020-12-27 13:38] VITALS: BP 124/71; PULSE 97; RESP 18; TEMP 36.4; O2SAT 99
--- NOTE | 2020-12-27 16:14 | PCM.PN.HOSP ---
Subjective Subjective Patient has history of Sjogren syndrome.. Patient also states she has IBS, constipation predominant. Regular bowel movement is once in 3 weeks. She had suppository and enema but without much success. She feels mild achiness in the back otherwise no severe pain. Objective Data Objective Data Vital Signs: Vital Signs Temp Pulse Resp BP Pulse Ox 97.5 F L 97 18 124/71 H 99 12/27/20 13:38 12/27/20 13:38 12/27/20 13:38 12/27/20 13:38 12/27/20 13:38 Oxygen Flow Rate (L/min) 6 Oxygen Delivery Method Room Air Weight: 150 lb 12.739 oz Body Mass Index (BMI) 23.6 Intake & Output: Intake and Output for Last 24 Hours 12/25/20 12/26/20 12/27/20 23:59 23:59 23:59 Intake Total 2402.50 / 2402.50 1999 2327.5 / 2327.5 Output Total 1575 / 1575 1400 / 1400 Balance 827.50 / 827.50 1999 927.5 / 927.5 Lab / Micro Data Result Diagrams: 12/25/20 06:46 12/25/20 06:46 Micro: Microbiology 12/22/20 08:30 Interface Orders SARS-CoV-2 Antigen (Rapid) - Final 12/15/20 09:25 Interface Orders Nasal Screen MRSA/MSSA - Final Physical Exam Narrative General: Alert, Oriented x3, Cooperative HEENT: Atraumatic, PERRLA, EOMI, Normocephalic Oral: No Gingival or Mucosal Lesions/ Ulcerations Neck: Supple, No JVD, Negative Carotid Bruits Lungs: Air entry diminished in bilateral lung bases. No crepitation/rhonchi Cardiovascular: Regular rate, Regular Rhythm, Normal S1, Normal S2, No murmurs Abdomen: Bowel Sounds sluggish, Soft, Non Tender, Non-Distended. No palpable mass : No renal angle tenderness. No suprapubic tenderness. Extremities: No edema, Capillary Refill Less than 3 Seconds Skin: No rashes, No breakdown Musculoskeletal/spine: Lumbar surgical dressing is dry. Mild stiffness on perioperative region. Neurological: Cranial nerves II-XII grossly intact, Deep Tendon Reflexes 2+/4 and Symmetrical, Neuro grossly intact Psych/Mental Status: Normal Affect, Appropriate. Assessment & Plan Assessment/Plan (1) Spondylolisthesis of lumbosacral region: (2) Ileus: PLAN: 1. Failed L5-S1 fusion with instability status post bilateral lateral fusion of L5-S1, and L4-L5: Pain is fairly well controlled. Patient does not have much tenderness. Continue PT and OT 2. Ileus, postop, persistent: Continue Dulcolax suppository and enema. Magnesium citrate is contraindicated. Abdominal x-ray with pelvis ordered for tomorrow a.m. 3. Constipation, fecal retention seen in the right hemicolon, resolving Continue on stool softners 4. Sjogren's syndrome, continue eye drops VTE prophylaxis as per discretion of spine surgeon. Bilateral SCDs
--- NOTE | 2020-12-27 16:38 | PCM.PN.ORT ---
Objective Data Objective Data Vital Signs: Vital Signs Temp Pulse Resp BP Pulse Ox 97.5 F L 97 18 124/71 H 99 12/27/20 13:38 12/27/20 13:38 12/27/20 13:38 12/27/20 13:38 12/27/20 13:38 Oxygen Flow Rate (L/min) 6 Oxygen Delivery Method Room Air Weight: 150 lb 12.739 oz Body Mass Index (BMI) 23.6 Intake & Output: Intake and Output for Last 24 Hours 12/25/20 12/26/20 12/27/20 23:59 23:59 23:59 Intake Total 2402.50 / 2402.50 1999 2327.5 / 2327.5 Output Total 1575 / 1575 1400 / 1400 Balance 827.50 / 827.50 1999 927.5 / 927.5 Lab / Micro Data Result Diagrams: 12/25/20 06:46 12/25/20 06:46 Micro: Microbiology 12/22/20 08:30 Interface Orders SARS-CoV-2 Antigen (Rapid) - Final 12/15/20 09:25 Interface Orders Nasal Screen MRSA/MSSA - Final Procedure Criteria Elective Risks - COVID COVID Risk Discussion: Postop day #4: Patient is doing much better today her ileus is softening up she is passing a lot of flatulence her abdomen feels a whole lot better. She has been walking all over the halls and her back is doing really well. Hospitalist is ordered 1 more KUB which is reasonable at this point. We will plan on probably sending her home tomorrow but for now I am still keeping her on clear liquids to make sure that we do not fall back into a full ileus. I changed her back dressing the incision is dry and healing well progress is satisfactory.
--- NOTE | 2020-12-27 16:40 | RAD_ITS ---
STUDY: X-RAY - ABDOMEN/PELVIS REASON FOR EXAM: Female, 50 years old. Abdominal ileus -- Including pelvis TECHNIQUE: AP supine and upright views of the abdomen and pelvis. COMPARISON: 12/26/2020 FINDINGS: Normal visualized lung bases. Increased gas and air-fluid levels in the small or large bowel. There is no demonstrated free abdominal air. The visualized liver, spleen and kidneys are grossly normal in size and morphology. Skin terrence in the lower abdominal midline. Hardware L5-S1 the left. Normal soft tissue structures. Mild scoliosis. RAD/Abd Inc Decub and/or Erect IMPRESSION: Ileus versus small bowel obstruction Electronically Signed: Bart Parkinson MD at 22:23 EDT , Service support ,
[2020-12-27] MEDS: Bisacodyl 5 MG Tablet PO (17:34)
[2020-12-27 18:56] VITALS: BP 119/71; PULSE 81; RESP 16; TEMP 36.8; O2SAT 98
[2020-12-27] MEDS: QUEtiapine 100 MG Tablet 300 MG PO (21:09)
[2020-12-27 21:19] VITALS: BP 125/65; PULSE 73; RESP 16; TEMP 36.5; O2SAT 100
[2020-12-28] MEDS: 0.9% Normal Saline 1,000 ML 75 ML IV (01:39)
[2020-12-28 02:20] VITALS: BP 92/52; PULSE 85; RESP 16; TEMP 36.7; O2SAT 98
[2020-12-28] MEDS: DiphenhydrAMINE 25 MG Capsule PO ×3 (02:22→11:53)
[2020-12-28] MEDS: Acetaminophen 325 MG Tablet 650 MG PO ×3 (04:17→13:20)
[2020-12-28] MEDS: oxyCODONE 5 MG Tablet PO ×3 (04:17→13:20)
[2020-12-28 08:20] VITALS: BP 120/64; PULSE 82; RESP 18; TEMP 36.6; O2SAT 96
[2020-12-28] MEDS: Ensure Surgery 237 ML LIQUID PO (09:00)
[2020-12-28] MEDS: Famotidine 20 MG Tablet PO (09:01)
[2020-12-28] MEDS: Gabapentin 600 MG Tablet 1200 MG PO (09:01)
[2020-12-28] MEDS: Bisacodyl 10 MG Suppository RC (09:02)
[2020-12-28] MEDS: FLUoxetine 20 MG Capsule PO (09:03)
[2020-12-28] MEDS: Senna/Docusate Sodium 1 Tablet 2 TABLET PO (09:03)
--- NOTE | 2020-12-28 13:08 | PCM.PN.HOSP ---
Subjective Subjective Patient has bowel movement. Back pain is well controlled. Surgical dressing is dry. Objective Data Objective Data Vital Signs: Vital Signs Temp Pulse Resp BP Pulse Ox 97.8 F 82 18 120/64 96 12/28/20 08:20 12/28/20 08:20 12/28/20 08:20 12/28/20 08:20 12/28/20 08:20 Oxygen Flow Rate (L/min) 6 Oxygen Delivery Method Room Air Weight: 150 lb 12.739 oz Body Mass Index (BMI) 23.6 Intake & Output: Intake and Output for Last 24 Hours 12/26/20 12/27/20 12/28/20 23:59 23:59 23:59 Intake Total 1999 3027.5 / 3027.5 1000 / 1000 Output Total 2200 / 2200 200 / 200 Balance 1999 827.5 / 827.5 800 / 800 Lab / Micro Data Result Diagrams: 12/25/20 06:46 12/25/20 06:46 Micro: Microbiology 12/22/20 08:30 Interface Orders SARS-CoV-2 Antigen (Rapid) - Final 12/15/20 09:25 Interface Orders Nasal Screen MRSA/MSSA - Final Radiography Diagnostic Testing: Radiology Impression Abdomen X-Ray 12/27/20 16:40 IMPRESSION: Ileus versus small bowel obstruction Electronically Signed: Bart Parkinson MD at 22:23 EDT , Service support , Physical Exam Narrative General: Alert, Oriented x3, Cooperative HEENT: Atraumatic, PERRLA, EOMI, Normocephalic Oral: No Gingival or Mucosal Lesions/ Ulcerations Neck: Supple, No JVD, Negative Carotid Bruits Lungs: Air entry equal in bilateral lung bases. No crepitation/rhonchi Cardiovascular: Regular rate, Regular Rhythm, Normal S1, Normal S2, No murmurs Abdomen: Bowel Sounds normal, Soft, Non Tender, Non-Distended. No palpable mass : No renal angle tenderness. No suprapubic tenderness. Extremities: No edema, Capillary Refill Less than 3 Seconds Skin: No rashes, No breakdown Musculoskeletal/spine: Lumbar surgical dressing is dry. Mild stiffness on perioperative region. Neurological: Cranial nerves II-XII grossly intact, Deep Tendon Reflexes 2+/4 and Symmetrical, Neuro grossly intact Psych/Mental Status: Normal Affect, Appropriate. Assessment & Plan Assessment/Plan (1) Spondylolisthesis of lumbosacral region: (2) Ileus: PLAN: 1. Failed L5-S1 fusion with instability status post bilateral lateral fusion of L5-S1, and L4-L5: Pain is fairly well controlled. Patient does not have much tenderness. Continue PT and OT 2. Ileus, postop, persistent: Continue Dulcolax suppository and enema. Magnesium citrate is contraindicated. Abdominal x-ray with pelvis ordered for tomorrow a.m. 3. Constipation, fecal retention seen in the right hemicolon, resolving Patient had a bowel movement on bisacodyl besides senna-S. Advised to follow-up with GI as she most probably has IBS constipation predominant. 4. Sjogren's syndrome, continue eye drops VTE prophylaxis as per discretion of spine surgeon. Bilateral SCDs Patient is hemodynamically stable to be discharged. Charges/Coding Visit Charges Inpatient E&M: 52384 Subs Hosp L2
[2020-12-28 15:00] VITALS: BP 129/61; PULSE 71; RESP 18; TEMP 36.6; O2SAT 100
--- NOTE | 2020-12-28 16:06 | PCM.DC ---
Discharge Instructions Follow Up Care Test Results: Test results from this visit will be discussed in further detail at your follow-up appointment, if applicable. Discharge Plan Admission Admit Date/Time: 12/23/20 14:06 Attending Provider: Dane Agrawal Primary Care Provider: Abhijit Luna Consulting Providers: Adrien Owusu Discharge Orders/Prescriptions Prescriptions: New bisacodyl 10 mg Suppository [address] BID PRN (Reason: SEVERE CONSTIPATION) Qty: 0 RF: 0 sennosides-docusate sodium [Stool Softener-Stimulant Laxat] 8.6-50 mg Tablet 2 tab PO BID Qty: 0 RF: 0 Continued gabapentin 600 mg tablet 1,200 mg PO BID RF: 0 fluoxetine [Prozac] 20 mg capsule 20 mg PO DAILY RF: 0 quetiapine [Seroquel] 300 mg tablet 300 mg PO QHS RF: 0 Other Ambulatory Orders: 12 Lead EKG (Routine) Location: None Selected Ordered By: Dr. Pelon Holt Referrals / Follow Up: Abhijit Luna DO [Primary Care Provider] - Micheal Luther MD [NON-STAFF] - Within 2 Weeks (For IBS constipation predominant.) Disposition Disposition (needs filled in before D/C Order can be placed): Home, Self Care
--- NOTE | 2020-12-28 16:10 | PCM.DC ---
Discharge Instructions Diet Discharge Diet: Light diet - advance as tolerated and Soft diet Activity Discharge Activity: May Not Drive and May Shower (shower ) May shower in (days): 2 May resume sexual activity in: 4-6 weeks Weight Bearing Status: Full weight bearing Dressing / Incision Call your doctor if your incision/area has: Continuous Slow Oozing, Increased Pain/ Swelling, Foul Smelling Discharge and Swelling at the incision site Call your doctor if you observe: Fever of 101 or Higher, Shortness of breath, Fainting spells, Chest pain and Uncontrolled pain Remove Dressing in: 1 day Cleanse incision/area with: Soap & Water Follow Up Care Please Follow Up With: Pelon Holt DO When: already has appointment Test Results: Test results from this visit will be discussed in further detail at your follow-up appointment, if applicable. Discharge Plan Admission Admit Date/Time: 12/23/20 14:06 Attending Provider: Dane Agrawal Primary Care Provider: Abhijit Luna Consulting Providers: Adrien Owusu Discharge Orders/Prescriptions Prescriptions: New bisacodyl 10 mg Suppository 10 mg SC BID PRN (Reason: SEVERE CONSTIPATION) Qty: 0 RF: 0 sennosides-docusate sodium [Stool Softener-Stimulant Laxat] 8.6-50 mg Tablet 2 tab PO BID Qty: 0 RF: 0 Continued gabapentin 600 mg tablet 1,200 mg PO BID RF: 0 fluoxetine [Prozac] 20 mg capsule 20 mg PO DAILY RF: 0 quetiapine [Seroquel] 300 mg tablet 300 mg PO QHS RF: 0 Other Ambulatory Orders: 12 Lead EKG (Routine) Location: None Selected Ordered By: Dr. Pelon Holt Referrals / Follow Up: Abhijit Luna DO [Primary Care Provider] - Micheal Luther MD [NON-STAFF] - Within 2 Weeks (For IBS constipation predominant.) Disposition Discharge Orders: Discharge Patient (Routine); Ordered 12/28/20 Ordered By: Dr. Dane Agrawal
--- NOTE | 2020-12-28 16:20 | PCM.DC.SUM ---
Providers Date of Admission: 12/23/20 Primary Care Physician: Dr. Abhijit Luna, Consultations 12/23/20 14:06 Consult: Hospitalist Routine Consulting Provider: Adrien Owusu Reason for Consult: Medical Management EMERGENT Consult: No MD Notified: Yes Date Notified: 12/23/20 Time Notified: 15:00 Method of Notification: Text Reason For Visit: POSTERIOR FUSION FIXATION L4-S1 Diagnosis Discharge Diagnosis (1) Spondylolisthesis of lumbosacral region: Status: Acute Code(s): M43.17 - Spondylolisthesis, lumbosacral region (2) Ileus: Status: Acute Code(s): K56.7 - Ileus, unspecified Medications at Discharge Home Medications fluoxetine 20 mg capsule 20 mg PO DAILY 10/11/20 gabapentin 600 mg tablet 1,200 mg PO BID tablet 10/11/20 quetiapine 300 mg tablet 300 mg PO QHS 10/11/20 bisacodyl 10 mg MS BID PRN #0 ea 12/28/20 sennosides-docusate sodium [Stool Softener-Stimulant Laxat] 2 tab PO BID #0 tab 12/28/20 Hospital Course Summary of Care Provided Hospital Course: Patient was admitted on on 23 December. She has been discharged today 28 December. The date of admission she underwent posterior fusion with internal fixation from L4-S1. She tolerated the procedure well. First couple of days that she was at absolute bed rest flat in bed because of a dural leak. On the third postop day we will let her get up and start walking around which she has done and done well. Well without a walker. Her dressing was changed yesterday and the incision was dry and healing well. She was given postop fusion protocol regarding her activities. She was given hydrocodone 7.5 mg for pain. She already has an appointment to follow-up in the office. She can return to taking her own medications at home. We will give her further instructions when she comes to my office. She is told that she cannot drive for about 3 weeks. She can shower in 2 days after removing the dressing. Weight / BMI Weight Weight: 150 lb 12.739 oz Body Mass Index (BMI) 23.6 ABG / Lab / Microbiology Data Result Diagrams: 12/25/20 06:46 12/25/20 06:46 Microbiology: Microbiology 12/22/20 08:30 Interface Orders SARS-CoV-2 Antigen (Rapid) - Final 12/15/20 09:25 Interface Orders Nasal Screen MRSA/MSSA - Final Radiography Diagnostic Testing: Radiology Impression Abdomen X-Ray 12/27/20 16:40 IMPRESSION: Ileus versus small bowel obstruction Electronically Signed: Bart Parkinson MD at 22:23 EDT , Service support , D/C Instructions Discharge Diet: Light diet - advance as tolerated and Soft diet May shower in (days): 2 May resume sexual activity in: 4-6 weeks Weight Bearing Status: Full weight bearing Call your doctor if your incision/area has: Continuous Slow Oozing, Increased Pain/ Swelling, Foul Smelling Discharge and Swelling at the incision site Call your doctor if you observe: Fever of 101 or Higher, Shortness of breath, Fainting spells, Chest pain and Uncontrolled pain Cleanse incision/area with: Soap & Water Please Follow Up With: Pelon Holt DO When: already has appointment Meaningful Use Info Meaningful Use Diagnoses (Choose all that apply): None applicable Discharge Plan Admission Admit Date/Time: 12/23/20 14:06 Attending Provider: Dane Agrawal Primary Care Provider: Abhijit Luna Consulting Providers: Adrien Owusu Discharge Orders/Prescriptions Prescriptions: New bisacodyl 10 mg Suppository 10 mg MS BID PRN (Reason: SEVERE CONSTIPATION) Qty: 0 RF: 0 sennosides-docusate sodium [Stool Softener-Stimulant Laxat] 8.6-50 mg Tablet 2 tab PO BID Qty: 0 RF: 0 Continued gabapentin 600 mg tablet 1,200 mg PO BID RF: 0 fluoxetine [Prozac] 20 mg capsule 20 mg PO DAILY RF: 0 quetiapine [Seroquel] 300 mg tablet 300 mg PO QHS RF: 0 Other Ambulatory Orders: 12 Lead EKG (Routine) Location: None Selected Ordered By: Dr. Pelon Holt Referrals / Follow Up: Abhijit Luna DO [Primary Care Provider] - Micheal Luther MD [NON-STAFF] - Within 2 Weeks (For IBS constipation predominant.) Disposition Discharge Orders: Discharge Patient (Routine); Ordered 12/28/20 Ordered By: Dr. Dane Agrawal
== END 2020-12-28 16:47 | disposition home or self-care (01) | DRG 460 ==
LOC: SDC 14:11 → MS3 14:11
PROVIDERS: Anesthesiology; Internal Medicine; Admitting Provider Orthopaedic Surgery; PCP Preventive Medicine Occupational Medicine; Referring Provider Orthopaedic Surgery; Visit Provider Internal Medicine
PROC: 0SG0071 Fusion of Lumbar Vertebral Joint with Autologous Tissue Substitute, Posterior Approach, Posterior Column, Open Approach (ICD-10-PCS; principal; 2020-12-23 07:00)
DX: M96.0 Pseudarthrosis after fusion or arthrodesis (principal); T84.216A Breakdown (mechanical) of internal fixation device of vertebrae, initial encounter; K56.7 Ileus, unspecified; G96.09 Other spinal cerebrospinal fluid leak; M53.2X7 Spinal instabilities, lumbosacral region; M43.17 Spondylolisthesis, lumbosacral region; Y83.8 Other surgical procedures as the cause of abnormal reaction of the patient, or of later complication, without mention of misadventure at the time of the procedure; Y92.234 Operating room of hospital as the place of occurrence of the external cause; Z20.822 Contact with and (suspected) exposure to COVID-19; M35.00 Sjogren syndrome, unspecified; K58.1 Irritable bowel syndrome with constipation; W00.0XXA Fall on same level due to ice and snow, initial encounter; F31.9 Bipolar disorder, unspecified; Z79.899 Other long term (current) drug therapy
CPT/HCPCS: 36415; 72100; 74019; 76000; 80048; 80053; 82962; 83735; 85025; 86703; 86704; 86705; 86706; 86708; 86709; 86803; 87081; 87340; 87426; 93005; 97110; 97161; 97530; 99251; C1713; C9803; J7030; J7120; A4216; G0463; J2405

== ENCOUNTER → 2021-03-18 07:45 | Outpatient (CLI) | payer BC, SELFPAY ==
--- NOTE | 2021-03-18 07:47 | RAD_ITS ---
CLINICAL INDICATION: Dysphagia, pain. EXAM: Double contrast esophagram.. TECHNIQUE: Standard double phase esophagram performed with effervescent capsules and thick and thin barium. Fluoroscopy time: 1:25 minutes/seconds. Number of images: 14 spot fluoroscopic series. FINDINGS: Surgical clips visualized superimposed over the neck. Unremarkable oropharyngeal phase of swallowing, unremarkable transit through the upper esophagus. Irregular esophageal motility was observed with delayed transit in the recumbent position. The esophagus demonstrates unremarkable contours was no evidence of strictures or diverticula, small type I hiatus hernia is visualized with moderate gastroesophageal reflux seen. RAD/Esophagus Dual Contrast IMPRESSION: Irregular esophageal motility, small type I hiatus hernia with moderate gastroesophageal reflux. Electronically Signed: Manan Ashton MD at 11:22 EDT Tel , Service support ,
== END ==
PROVIDERS: PCP Preventive Medicine Occupational Medicine; Visit Provider Internal Medicine Gastroenterology
DX: R13.10 Dysphagia, unspecified (principal)
CPT/HCPCS: 74221

== ENCOUNTER → 2021-04-11 09:33 | Outpatient (CLI) | payer BC, SELFPAY | PROVIDERS: PCP Preventive Medicine Occupational Medicine; Referring Provider Internal Medicine Gastroenterology; Visit Provider Internal Medicine Gastroenterology | DX: Z11.59 Encounter for screening for other viral diseases (principal) | CPT/HCPCS: 87635; C9803; U0005; U0003 ==

== ENCOUNTER → 2021-07-04 06:30 | Outpatient (CLI) | payer BC, SELFPAY ==
--- NOTE | 2021-07-04 06:31 | MRI_ITS ---
STUDY: MRI LUMBAR SPINE WITH AND WITHOUT CONTRAST REASON FOR EXAM: Female, 51 years old. Post surgical PAIN TECHNIQUE: Standardized fat and water weighted pulse sequences were obtained in the sagittal and axial planes. IV 15cc Dotarem was administered for the contrast portion of the examination. COMPARISON: 10/25/2020, 06/17/2021 x-ray FINDINGS: T12-L1: Normal endplates. Normal disc height, hydration and morphology. Normal bilateral facet joints. Normal central canal and bilateral lateral recesses. Normal bilateral intervertebral neural foramina. Susceptibility artifact from left-sided L4-S1 posterior instrumented fusion. The L4 screw traverses the left lamina and spinal canal, without traversing the pedicle. This causes mass effect on the cauda equina. Suspect the screw traverses the thecal sac. The S1 screw appears normally placed. Persistent grade 1 anterolisthesis of L5 on S1. Normal lumbar lordosis. Thoracolumbar dextroscoliosis. Normal conus medullaris that terminates at the level of T12 L1-2: Normal endplates. Normal disc height, hydration and morphology. Normal bilateral facet joints. Normal central canal and bilateral lateral recesses. Normal bilateral intervertebral neural foramina. L2-3: Normal endplates. Normal disc height, hydration and morphology. Normal bilateral facet joints. Normal central canal and bilateral lateral recesses. Normal bilateral intervertebral neural foramina. L3-4: Normal endplates. Normal disc height, hydration and morphology. Normal bilateral facet joints. Normal central canal and bilateral lateral recesses. Normal bilateral intervertebral neural foramina. L4-5: Normal endplates. Disc bulge and posterior annular tear. Moderate bilateral facet arthrosis with mild right neural foraminal stenosis. L5-S1: Normal endplates. Severe disc height loss. Normal central canal and bilateral lateral recesses. Severe bilateral facet arthrosis with moderate right and mild left neural foraminal stenosis. Normal visualized sacral ala. There is mild paraspinal muscular atrophy. There is soft tissue enhancement in the operative bed where there has been L5 and S1 laminectomy. No finding of drainable fluid collection. MRI/Spine Lumbar W/WO Contrast IMPRESSION: The L4 screw appears to traverse the thecal sac. The trajectory of the S1 screw appears normal. Operative bed enhancement may represent fibrosis. There is no drainable fluid collection. Neural foraminal stenoses at L4-5 and L5-S1 detailed above. Electronically Signed: Javon Ballard MD at 4:50 EST Tel , Service support ,
== END ==
PROVIDERS: PCP Preventive Medicine Occupational Medicine; Referring Provider Orthopaedic Surgery; Visit Provider Orthopaedic Surgery
DX: M43.17 Spondylolisthesis, lumbosacral region (principal); Z98.1 Arthrodesis status
CPT/HCPCS: 72158; A9575

== ENCOUNTER 2021-09-07 06:15 | Outpatient (CLI) | payer OTHER, SELFPAY ==
--- NOTE | 2021-09-07 11:30 | NEURO ---
NCS and/or EMG Patient Report Ordering Doctor: Pelon Holt DATE OF SERVICE: 09/07/21 Ashley presents for electrodiagnostic testing of the lower limbs. She reports back pain radiating into the legs, worse on the right side. She reports a history of spinal fusion in December 2020 Electrodiagnostic findings: Peroneal motor nerve demonstrates normal distal latency, amplitude and conduction velocity bilaterally. Tibial motor response is normal bilaterally. Normal peroneal F wave bilaterally. Prolonged right tibial F wave. H reflex is prolonged bilaterally. Prolonged left sural latency is noted. Normal superficial peroneal response bilaterally. Normal right sural response. On needle EMG, all muscles tested in the lower limbs showed no evidence of denervation with normal motor unit action potentials. No denervation noted in the lumbar paraspinals. Electrodiagnostic impression: This is an abnormal study in the lower limbs 1. 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 2. No electrodiagnostic evidence is noted for lumbosacral radiculopathy 3. There is no electrodiagnostic evidence for peripheral polyneuropathy.
== END 2021-09-07 23:59 | disposition home or self-care (01) ==
LOC: PSN 06:17
PROVIDERS: PCP Preventive Medicine Occupational Medicine; Referring Provider Orthopaedic Surgery; Visit Provider Orthopaedic Surgery
DX: M54.10 Radiculopathy, site unspecified (principal)
CPT/HCPCS: 95886; 95911

== ENCOUNTER 2021-11-08 11:25 | Observation (INO) | payer OTHER, SELFPAY ==
--- NOTE | 2021-10-31 12:00 | EKG12_ITS ---
Test Reason : PREOP Blood Pressure : / mmHG Vent. Rate : 074 BPM Atrial Rate : 074 BPM P-R Int : 144 ms QRS Dur : 072 ms QT Int : 374 ms P-R-T Axes : 063 052 024 degrees QTc Int : 415 ms Normal sinus rhythm Normal ECG Confirmed by PAULA WU, COURT ([id number]), graphic editor ANJELICA LUCAS ([id number]) on 11/01/2021 8:46:17 AM Referred By: Pelon Holt Confirmed By:COURT MITCHELL MD
[2021-10-31 12:43] LABS: Absolute Lymphocyte Count 2.12 X10^3/uL (0.83-4.51); Absolute Neutrophil Count 2.2 X10^3/uL (2.0-7.7); Basophil# 0.07 X10^3/uL; Basophil% 1.3 % (0-1); Eosinophil# 0.43 X10^3/uL; Eosinophils% 8.3 % (0-5); Hematocrit 34.8 % (37-47); Hemoglobin 11.4 g/dL (12.0-15.0); Lymphocyte # 2.12 X10^3/ul (0.83-4.51); Lymphocyte % 40.8 % (19-41); Mean Corp Hgb Conc 32.8 g/dL (32-36); Mean Corpuscular Hgb 31.8 pg (27.0-32.0); Mean Corpuscular Volume 96.9 fL (81-99); Mean Platelet Vol. 9.2 fl (6.2-12.0); Monocyte# 0.34 X10^3/uL; Monocyte% 6.5 % (0-10); NRBC Flagged by Analyzer 0 % (0-5); Neutrophil # 2.23 X10^3/uL (2.7-7.7); Neutrophil % 42.9 % (47-70); Platelet Count 344 K/mm3 (150-450); RBC Distribution Width SD 46.6 fl (35.1-43.9); Red Blood Count 3.59 M/mm3 (4.2-5.4); White Blood Count 5.2 K/mm3 (4.4-11.0)
[2021-10-31 13:03] LABS: Anion Gap 6 (5-15); BUN 14 mg/dL (7-18); BUN/Creat Ratio 14.4 RATIO (10-20); Calcium,Total 8.7 mg/dL (8.5-10.1); Chloride 107 mmol/L (98-107); Creatinine, Serum 0.97 mg/dL (0.55-1.02); EST Glomerular Filtration Rate 64 mL/min (>60); Est Glom Filt Rate - Afr Amer 78 mL/min (>60); Glucose 105 mg/dL (74-106); Sodium Level 139 mmol/L (136-145)
[2021-10-31 13:41] LABS: HIV - WCH Non-Reactive (Nonreactive); Hepatitis B Surface Antibody Non-Reactive; Hepatitis C Antibody Non-Reactive (Nonreactive)
[2021-11-02 10:30] LABS: Hepatitis A AB, Total Negative (Negative)
--- NOTE | 2021-11-07 14:09 | PCM.HP.BLA ---
History and Physical Date of Admission: 11/08/21 MR#:[id number]:[id number]: ASHLEY ALBERTS [facility] #:[id number]:1970 Provider:Dr. Pelon Holt DOAge/Sex: 50/F [facility] Int[facility] Vital Signs 10/11/20 Height 5 ft 7 in 10/11/20 Weight: 160 lb 10/11/20 BMI 25.0 Intake Visit Reasons: Lumbar spine Accompanied by: Self Allergies No Known Allergies Allergy Medications fluoxetine 20 mg capsule 20 mg PO DAILY 10/11/20 [History Confirmed 10/11/20] gabapentin 600 mg tablet 1,200 mg PO BID tablet 10/11/20 [History Confirmed 10/11/20] quetiapine 300 mg tablet 300 mg PO DAILY 10/11/20 [History Confirmed 10/11/20] Post menopausal: Yes PFSH Medical History Sjogren's syndrome (Acute) (Acute) h/o teeth removal (Acute) Surgical History H/O hand surgery (Acute) H/O: hysterectomy (Acute) History of lumbar fusion (Acute) Social History household members: spouse Smoking Status: Former smoker alcohol intake: never what type of physical activity do you participate in: none do you feel safe at home: Yes HPI Lumbar spine: Details: that has a chief complaint of low back pain.Ashley is a most pleasant lady 50 years old She also gets some rightParts of this documentation were recorded by a scribe, this documentation accurately reflects the service provided and the decisions made by me, Dr. Pelon Holt, ASHLEY ALBERTS is a 50 year old F here today to establish as a new patient. C/o lumbar spine pain. Saw Dr. Martinez in the past, had ct scan d/t low back pain which worsened after a fall. Onset: at 12yrs old, then recently started 2019. Patient voiced she had a fusion in 1999, by Dr. Khoury at [facility]. Patient went in the eater, a wave took her and patient started having severe sciatica pain. Patient voiced she could not stand, squat, or walk for more than 30 seconds. Patient saw a spinal surgeon in [place], which stated she needed surgery. Patient did not go through with it d/t her spouse lost her job. Patient states she has had injections, which helped temporally. Patient stated she fell on a cement stairs in August. Patient denies feeling a pop, snap or anything from her lumbar. Pain has been worsening as of recent. Patient states she has not slept well in two years. Patient has to switch positions every 15-20 minutes d/t pain. Patient has tried healthcare sales representative, but was eventually sent away. Patient states she has completed six weeks of formal therapy as well as aquatic therapy. Patient voiced she had no improvement. Patient is currently on gabapentin for pain relief, with ibuprofen and Tylenol together for pain relief. Patient alternates ice packs and heat applications. Pain is described as pinching on her left side. Pain radiates to the right as well, described as pinching. Pain radiates to bilateral legs as well as her groin. Ashley is a most pleasant lady 50 years old that has a chief complaint of low back pain. She also gets some radiation into both buttocks and thighs. But her main complaint is that of pain in the middle of her low back. She remembers having low back pain as young as 12 years old. The pain has been chronic basically since then. She did have a respite after the year 1999. She had a fusion done at that time and she had 15 years of good relief. However over the last 6 years the pain has gradually returned it is been the same now for a couple of years no better or no worse but hurts her every day all the time. She is able to do her job barely but likely she can sit and stand or either 1 all she wants to do her job. She denies any bowel or bladder dysfunction. She denies history of unexplained weight loss night fever sweats or chills. On examination she has pain with flexion more than extension of her lumbar spine but pain with both. She has reasonable motor strength of all the major muscle groups of both lower extremities. She has 2+ patellar reflexes bilaterally but absent Achilles reflexes bilaterally. She has no long tract signs. Clonus is absent and Babinski's are downgoing. I reviewed plain x-rays of her lumbar spine taken in my office the demonstrates that she has a very high lumbosacral angle with what is probably a grade 2 slip of L5 on S1. Evidence of the old fusion is hard to show 1 way or the other but we presume that it helped her significantly so it must of been at least a partial fusion. The last MRI scan that she had was in 2019. I am ordering a new MRI scan of the lumbar spine. I will see her after the new MRI and make further recommendations. Incidentally she has failed all conservative measures including aquatic therapy physical therapy healthcare sales representative anti-inflammatory medication etc. I will see her after the MRI scan and make further recommendations Assessment & Plan Problems
[2021-11-08] VITALS (12 sets, daily range): BP systolic 97–146; BP diastolic 56–92; PULSE 71–101; RESP 9–18; TEMP 36.1–36.8; O2SAT 97–100; BMI 24.1
[2021-11-08 06:16] LABS: Bedside Glucose 67 mg/dL (74-106)
[2021-11-08] MEDS: Acetaminophen 500 MG Tablet 1000 MG PO ×3 (06:16→22:29)
[2021-11-08] MEDS: Lactated Ringers 1,000 ML 15 ML IV (06:16)
--- NOTE | 2021-11-08 07:30 | RAD_ITS ---
STUDY: X-RAY - LUMBAR SPINE REASON FOR EXAM: Female, 51 years old. Single documentation view of L5 nerve root expiration. TECHNIQUE: A single lateral view(s) of the lumbar spine were obtained. COMPARISON: 06/17/2021. FINDINGS: Single lateral view shows surgical instrument in the L4 vertebral body. Posterior fusion from L4 to S1 present on the prior study has been withdrawn. 4.3 cm of anterolisthesis of L5 on S1 which is increased since the prior study. The soft tissue structures are unremarkable. RAD/Spine 1 View Any Level IMPRESSION: Removal of posterior fixation with increased spondylolisthesis at L5-S1. Electronically Signed: Harry Sorto MD at 11:10 EDT ,
[2021-11-08] MEDS: Cefazolin 2 GM in 0.9% Normal Saline 100 ML IV (07:45)
[2021-11-08] MEDS: THROMBIN (RECOMBINANT) 20,000 UNIT VIAL 20000 UNIT TOPICAL (08:35)
--- NOTE | 2021-11-08 11:30 | OP.PCM_ITS ---
Report of Operation Date of Procedure: 11/08/21 Description of Surgical Findings:: Preoperative diagnosis: Severe right L5 radiculopathy and status post L4-S1 fusion Postoperative diagnosis: The same Procedures: #1 repeat laminectomy L4-5 on the right CPT code 86180 #2 removal of hardware L4-S1 CPT code 49944 Surgeon: Dr. Holt judicial administrative assistant: Shanelle Andres NP Anesthesia: General endotracheal anesthesia administered by [facility] Estimated blood loss: 100 cc Drains: None Complications: None Procedure: Patient was taken to the OR where she was placed under general endotracheal anesthesia Sims catheter was then inserted. Neuro monitoring placed their leads and the patient. The patient was then moved over onto the Mundo frame in the prone position. Care was taken to protect her bony prominences ulnar nerves of both elbows the brachial plexus bilaterally the neck and cervical spine and facial features in her breasts. We then prepped and draped the back in the usual fashion. Incision was then made over the old inc ision subcutaneous tissues were incised the length of the skin incision. Note this was a very difficult surgery I first removed the hardware from the left side. The paravertebral muscles off the lamina and then moved lateralward to expose the 2 pedicle screws. Using a special cutting instrument we cut the titanium luiza in the middle and then I used a helicopter device to remove each of the 2 pedicle screws. Then started developing the opposite side that is the right side where her leg pain was. It was a slow tedious process because of the tremendous amount of scar tissue I started out lateralward after putting self- retaining super slide retractors in place I then slowly moved medialward removing more more scar tissue as I went into we finally found the edge of the lamina and bone using 45 degree Kerrison rongeurs I was able to slowly remove it I also used an osteotome to remove bone directly off the base of the L5 nerve. Again this was a long tedious process and a tremendous amount of scar tissue was noted. I also did a medial facetectomy of the superior facet of L5. Once done we were able to check the nerve root and his foraminal exit was found to be quite open above and below the laminotomy site. Gelfoam controlled the bleeding in the epidural space. Then placed amnionic membrane directly over the base of the nerve root and dura to prevent adhesions. Then placed Gelfoam over the top of this. We had a good fusion there was no movement between the vertebra. It was so dry at the end the case we decided not to put a drain in place. We then closed the lumbar fascia using [id number] suture with #1 Vicryl for closure of subcutaneous tissues with 2-0 Vicryl and 0 Vicryl ends layers in interrupted fashion and finally the skin was approximated using skin clips. Sterile dressings were then applied. The patient was then recovered in the OR moved to her hospital bed and taken to recovery in satisfactory condition. There is the end of operative summary on Ashley Black this is Dr. Holt dictating.
[2021-11-08] MEDS: Lactated Ringers 1,000 ML 100 ML IV (12:03)
--- NOTE | 2021-11-08 12:07 | SUR.PHASEI ---
PATIENT HAS BLEEDING NOTED ON SCD FROM THE PUNCTURE OF THE LEFT MEDIAL HECK AREA FROM THE NEUROMUSCULAR MONITORING.
[2021-11-08] MEDS: Gabapentin 600 MG Tablet 1200 MG PO ×2 (13:54→22:29)
--- NOTE | 2021-11-08 15:05 | PCM.CONS.GEN ---
Documented by User: Mable Gaines NP, PUBLIC RELATIONS OFFICER-C 11/08/21 15:13 Assessment & Plan Assessment/Plan (1) Lumbosacral radiculopathy at L5: PLAN: 1. Severe right L5 radiculopathy with history of L4-S1 fusion- s/p repeat laminectomy L4-L5 on the right and removal of hardware L4-S1. Management per surgery. PT eval. As needed pain regimen. Continue gabapentin. 2. Sjogren's syndrome-not on medication regimen. 3. Bipolar disorder-on quetiapine, fluoxetine. DVT prophylaxis- SCDs This patient was seen by Mable Gaines NP-C under the supervision of Dr. Christianson. Time spent examining patient, reviewing data and subsequent management of care: 14 minutes HPI Consult Data Date of Consult: 11/08/21 HPI Narrative HPI Narrative: ECHO ALBERTS, is a 51 F who underwent repeat laminectomy L4-L5 on the right and removal of hardware L4-S1 secondary to severe right L5 radiculopathy with history of L4-S1 fusion. Hospitalist services consulted for medical management. Patient reports significant pain postoperatively. Requesting for Sims catheter to be removed. Denies nausea. Denies shortness of breath. Denies other symptoms or complaints. [facility] Medical History Arthritis Back pain Bipolar disorder Constipation h/o teeth removal History of pain when walking Hoarseness Injury of back Non-smoker Sjogren's syndrome Wears dentures Wears glasses Home Medications fluoxetine 20 mg capsule 20 mg PO DAILY 10/11/20 [History Last Taken 12/22/20 10:00] quetiapine 300 mg tablet 300 mg PO QHS 10/11/20 [History Last Taken 11/07/21 20:00] gabapentin 600 mg tablet 1,200 mg PO TID tab 08/10/21 [History Last Taken 11/08/21 03:30] hydrocodone-acetaminophen 5-325mg 5mg-325mg 1 tab PO TID tab 08/10/21 [History Last Taken 11/08/21 03:30] bisacodyl 5 mg tablet,delayed release 15 mg PO WE 09/09/21 [History Last Taken 11/02/21 08:00] Allergy/AdvReac Type Severity Reaction Status Date / Time No Known Allergies Allergy Verified 11/08/21 06:02 Family History (Updated 11/08/21 @ 15:07 by Mable Gaines NP, PUBLIC RELATIONS OFFICER-C) Father Diabetes Mother Thyroid disorder Surgical History H/O hand surgery H/O: hysterectomy History of fusion of lumbar spine History of lumbar fusion Social History household members: spouse Smoking Status: Never smoker alcohol intake: never what type of physical activity do you participate in: none do you feel safe at home: Yes ROS Constitutional Constitutional: Denies change in weight, chills, fatigue, fever(s) or weakness Cardiovascular Cardiovascular: Denies chest pain, edema, lightheadedness, palpitations or syncope Respiratory/Chest Respiratory/Chest: Denies cough, dyspnea, productive cough, shortness of breath at rest, shortness of breath with exertion or wheezing Gastrointestinal Gastrointestinal: Denies abdominal pain, constipation, diarrhea, nausea or vomiting Genitourinary Genitourinary: Denies burning urination, difficulty urinating, dysuria, hematuria, urinary frequency, urinary incontinence or urinary urgency Musculoskeletal Musculoskeletal: Reports back pain; Denies joint pain or muscle weakness Integumentary Integumentary: Denies erythema, lesions, rash or wounds Neurologic Neurologic: Denies abnormal speech, confusion, dizziness, focal weakness, numbness, paresthesias, seizure-like activity or syncope Psychiatric Psychiatric: Denies anxiety or depression Hematologic/Lymphatic Hematologic/Lymphatic: Denies anemia, easy bleeding or easy bruising Allergic/Immunologic Allergic/Immunologic: Denies hives or asthma Physical Exam Const alert, oriented x3 and no apparent distress Orientation / Consciousness: awake, oriented to person, oriented to place and oriented to time HEENT normocephalic and moist oral mucous membranes Eyes PERRL, EOMs intact bilaterally and conjunctivae normal Neck no lymphadenopathy Resp normal respiratory effort and clear to auscultation bilaterally Cardio regular rate, regular rhythm and no murmurs Peripheral Pulses: pulses 2+ throughout GI normal to inspection, nondistended, normoactive bowel sounds, non-tender and non-distended Extremity normal to inspection Skin no rashes or lesions noted Skin Narrative: post op dressing intact Lesions: no lesions Rashes: no rashes Trauma: no lacerations or abrasions Neuro CN's II-XII intact bilaterally, no focal motor deficits, no sensory deficits noted and deep tendon reflexes 2+ bilaterally Psych mental status grossly normal and affect normal Lab / Micro Data Result Diagrams: 10/31/21 12:19 10/31/21 12:19 Labs: Laboratory Results - last 24 hr 11/08/21 05:59: POC Glucose 67 L Radiology Impression Spine X-Ray 11/08/21 07:30 IMPRESSION: Removal of posterior fixation with increased spondylolisthesis at L5-S1. Electronically Signed: Harry Sorto MD at 11:10 EDT , Documented by User: Dr. Leta Christianson MD 11/08/21 15:23 HPI Consult Data Date of Consult: 11/08/21 [facility] Medical History Arthritis Back pain Bipolar disorder Constipation h/o teeth removal History of pain when walking Hoarseness Injury of back Non-smoker Sjogren's syndrome Wears dentures Wears glasses Home Medications fluoxetine 20 mg capsule 20 mg PO DAILY 10/11/20 [History Last Taken 12/22/20 10:00] quetiapine 300 mg tablet 300 mg PO QHS 10/11/20 [History Last Taken 11/07/21 20:00] gabapentin 600 mg tablet 1,200 mg PO TID tab 08/10/21 [History Last Taken 11/08/21 03:30] hydrocodone-acetaminophen 5-325mg 5mg-325mg 1 tab PO TID tab 08/10/21 [History Last Taken 11/08/21 03:30] bisacodyl 5 mg tablet,delayed release 15 mg PO WE 09/09/21 [History Last Taken 11/02/21 08:00] Allergy/AdvReac Type Severity Reaction Status Date / Time No Known Allergies Allergy Verified 11/08/21 06:02 Family History (Updated 11/08/21 @ 15:07 by Mable Gaines PUBLIC RELATIONS OFFICER, PUBLIC RELATIONS OFFICER-C) Father Diabetes Mother Thyroid disorder Surgical History H/O hand surgery H/O: hysterectomy History of fusion of lumbar spine History of lumbar fusion Social History household members: spouse Smoking Status: Never smoker alcohol intake: never what type of physical activity do you participate in: none do you feel safe at home: Yes Lab / Micro Data Result Diagrams: 10/31/21 12:19 10/31/21 12:19
[2021-11-08] MEDS: Cefazolin 1 GM/50 ML BAG IV (15:11)
[2021-11-08] MEDS: Morphine 4 MG/ML Syringe IV ×3 (15:26→20:44)
[2021-11-08] MEDS: 0.9% Saline Lock 10 ML Syringe IV ×3 (15:26→20:44)
[2021-11-08] MEDS: diazePAM 5 MG Tablet PO (17:42)
[2021-11-08] MEDS: oxyCODONE 5 MG Tablet PO ×2 (17:42→22:29)
[2021-11-08] MEDS: QUEtiapine 100 MG Tablet 300 MG PO (22:29)
[2021-11-09] MEDS: 0.9% Saline Lock 10 ML Syringe IV ×6 (00:21→20:57)
[2021-11-09] MEDS: Cefazolin 1 GM/50 ML BAG IV (00:22)
[2021-11-09] MEDS: Morphine 4 MG/ML Syringe IV ×6 (01:15→20:56)
[2021-11-09 02:38] VITALS: BP 93/63; PULSE 72; RESP 16; TEMP 36.6; O2SAT 98
[2021-11-09] MEDS: oxyCODONE 5 MG Tablet PO ×2 (03:39→07:29)
[2021-11-09] MEDS: Acetaminophen 500 MG Tablet 1000 MG PO ×3 (06:16→21:48)
[2021-11-09] MEDS: Gabapentin 600 MG Tablet 1200 MG PO ×3 (06:17→21:48)
[2021-11-09] MEDS: FLUoxetine 20 MG Capsule PO (07:29)
[2021-11-09 08:15] VITALS: BP 100/61; PULSE 82; RESP 16; TEMP 36.6; O2SAT 96
--- NOTE | 2021-11-09 09:49 | PN.HOSP_ITS ---
Subjective Subjective Feels well. Has not been up yet for sustained period to know how her leg will feel. Objective Data Objective Data Vital Signs: Vital Signs Temp Pulse Resp BP Pulse Ox 36.6 C 82 16 100/61 96 11/09/21 08:15 11/09/21 08:15 11/09/21 08:15 11/09/21 08:15 11/09/21 08:15 Oxygen Flow Rate (L/min) 4 Oxygen Delivery Method Room Air Weight: 69.853 kg Body Mass Index (BMI) 24.1 Intake & Output: Intake and Output for Last 24 Hours 11/07/21 11/08/21 11/09/21 23:59 23:59 23:59 Intake Total 3475.33 / 3475.33 1150 / 1150 Output Total 900 / 900 Balance 2575.33 / 2575.33 1150 / 1150 Lab / Micro Data Result Diagrams: 10/31/21 12:19 10/31/21 12:19 Micro: Microbiology 11/07/21 06:40 Interface Orders SARS-CoV-2 Antigen (Rapid) - Final 10/31/21 12:19 Swab (Method) Nasal Screen MRSA/MSSA - Final Radiography Diagnostic Testing: Radiology Impression Spine X-Ray 11/08/21 07:30 IMPRESSION: Removal of posterior fixation with increased spondylolisthesis at L5-S1. Electronically Signed: Harry Sorto MD at 11:10 EDT , Physical Exam Resp normal respiratory effort, no retractions, no use of accessory muscles and clear to auscultation bilaterally Cardio regular rate, regular rhythm, S1 normal heart sound and S2 normal heart sound GI normal to inspection, nondistended, normoactive bowel sounds, soft to palpation, non-tender and non-distended Assessment & Plan Assessment/Plan (1) Lumbosacral radiculopathy at L5: PLAN: 1. L5 radiculopathy s/p laminectomy mgmt per spine service. 2. chronic conditions: * Sjogren's syndrome * Bipolar disorder: on quetiapine, fluoxetine Pt medically stable for discharge. Will follow peripherally. Charges/Coding Visit Charges Inpatient E&M: 78517 Subs Hosp L1
[2021-11-09] MEDS: diazePAM 5 MG Tablet PO ×2 (10:34→16:28)
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
--- NOTE | 2021-11-09 11:13 | CASEMGMT ---
SERGEY BERNAL Assessment: Face to Face with pt for initial transition planning/care coordination assessment. RN GABE introduced self and role at [facility], pt voices understanding and consents to assessment. Pt is A/O x4 and answers all questions appropriately at this time. Pt sitting in chair with and mother at bedside. Care providers, pharmacy, and demographics verified/updated. Admitting Dx: Rt nerve root exploration PCP:Cheryl Specialists:Jonathon, spine surgeon; Abdirizak, pain mgmt Preferred Pharmacy: [facility] Retail Insurance: [employer] Prescription Benefit: yes LW/HPOA: Pt denies having a LW/DPOA and denies need for info regarding AD. LNOK: William Black, ; Elysia Long, mother Living Arrangements: Pt lives with in a house turned into an apartment on main level with 4 steps to enter. Pt reports she was I in ADL's and denies concerns at home. Transportation: Pt drives self and denies concerns with transportation. Pt son and mother is able to transport pt while she cannot drive. DME/HHC/SNF: Pt has a walking stick at home. Denies other DME or need for. Pt denies hx of HHC or SNF stays. Pt states no concerns with going home at time of dc. Pt states no further concerns/needs. CM to follow. Advised pt to ask CM if any further question/concerns/needs arise, voices understanding. Pt Goal: Home Plan: Home
[2021-11-09] MEDS: oxyCODONE 5 MG Tablet 10 MG PO ×2 (11:43→16:27)
--- NOTE | 2021-11-09 12:51 | NURSING ---
MATTRESS CHANGED ON BED
[2021-11-09 13:54] VITALS: BP 110/67; PULSE 85; RESP 14; TEMP 36.4; O2SAT 96
[2021-11-09] MEDS: Mag Hydrox/Al Hydrox/Simeth 30 ML UDC 15 ML PO (16:38)
[2021-11-09 19:54] VITALS: BP 130/78; PULSE 82; RESP 18; TEMP 36.7; O2SAT 97
[2021-11-09] MEDS: QUEtiapine 100 MG Tablet 300 MG PO (21:48)
[2021-11-10 02:13] VITALS: BP 154/90; PULSE 111; RESP 18; TEMP 36.9; O2SAT 96
[2021-11-10] MEDS: Ondansetron 4 MG/2 ML Vial IV ×2 (02:23→10:19)
[2021-11-10] MEDS: 0.9% Saline Lock 10 ML Syringe IV ×2 (02:24→10:19)
[2021-11-10] MEDS: oxyCODONE 5 MG Tablet 10 MG PO ×2 (03:07→09:39)
[2021-11-10] MEDS: diazePAM 5 MG Tablet PO ×2 (03:07→10:24)
[2021-11-10] MEDS: Mag Hydrox/Al Hydrox/Simeth 30 ML UDC 15 ML PO (03:07)
[2021-11-10] MEDS: Gabapentin 600 MG Tablet 1200 MG PO ×2 (05:53→14:57)
[2021-11-10] MEDS: Acetaminophen 500 MG Tablet 1000 MG PO ×2 (05:53→14:57)
[2021-11-10 07:29] VITALS: O2SAT 94
[2021-11-10 08:15] VITALS: BP 133/80; PULSE 96; RESP 18; TEMP 36.6; O2SAT 95
[2021-11-10] MEDS: FLUoxetine 20 MG Capsule PO (09:39)
--- NOTE | 2021-11-10 10:00 | NURSING ---
talked with social studies department chair renay requesting she evaluate patient as after talking with Primary RN informed patient making statements to therapy that she does not want to live anymore.
--- NOTE | 2021-11-10 10:13 | PN.HOSP_ITS ---
Subjective Subjective Still with pain in her right leg, but notes it is slightly better than previous. Ready to go home. Objective Data Objective Data Vital Signs: Vital Signs Temp Pulse Resp BP Pulse Ox 36.6 C 96 18 133/80 H 95 11/10/21 08:15 11/10/21 08:15 11/10/21 08:15 11/10/21 08:15 11/10/21 08:15 Oxygen Flow Rate (L/min) 4 Oxygen Delivery Method Room Air Weight: 69.853 kg Body Mass Index (BMI) 24.1 Intake & Output: Intake and Output for Last 24 Hours 11/08/21 11/09/21 11/10/21 23:59 23:59 23:59 Intake Total 3475.33 / 3475.33 1150 / 1150 1999 Output Total 900 / 900 Balance 2575.33 / 2575.33 1150 / 1150 1999 Lab / Micro Data Result Diagrams: 10/31/21 12:19 10/31/21 12:19 Micro: Microbiology 11/07/21 06:40 Interface Orders SARS-CoV-2 Antigen (Rapid) - Final 10/31/21 12:19 Swab (Method) Nasal Screen MRSA/MSSA - Final Physical Exam Const alert and no apparent distress Resp normal respiratory effort, no retractions, no use of accessory muscles and clear to auscultation bilaterally Cardio regular rate, regular rhythm, S1 normal heart sound and S2 normal heart sound GI normal to inspection, nondistended, normoactive bowel sounds, soft to palpation, non-tender and non-distended Extremity normal to inspection Neuro Sensorium / Orientation: awake and alert Assessment & Plan Assessment/Plan (1) Lumbosacral radiculopathy at L5: PLAN: 1. L5 radiculopathy s/p laminectomy mgmt per spine service. 2. chronic conditions: * Sjogren's syndrome * Bipolar disorder: on quetiapine, fluoxetine Pt medically stable for discharge. Will sign off. Charges/Coding Visit Charges Inpatient E&M: 36312 Subs Hosp L1
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
--- NOTE | 2021-11-10 10:40 | NURSING ---
At approximately 1000, Therapy came to this nurse after seeing pt in room. Pt told Therapy that she wanted to . This nurse informed Jenna, Charge Nurse and Jenna Informed Lacey, Packing Line Worker. Lacey is in room talking with pt now.
[2021-11-10] MEDS: Calcium Carbonate 500 MG Tablet 1000 MG PO (11:50)
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
[2021-11-10] MEDS: Morphine 4 MG/ML Syringe IV (12:04)
--- NOTE | 2021-11-10 13:31 | DCINST_ITS ---
Discharge Instructions Follow Up Care Test Results: Test results from this visit will be discussed in further detail at your follow-up appointment, if applicable. Discharge Plan Admission Admit Date/Time: 11/08/21 11:25 Primary Reason for Your Visit: surgery Attending Provider: Pelon Holt Primary Care Provider: Abhijit Luna Consulting Providers: Leta Christianson Discharge Orders/Prescriptions Prescriptions: No Action fluoxetine [Prozac] 20 mg capsule 20 mg PO DAILY RF: 0 quetiapine [Seroquel] 300 mg tablet 300 mg PO QHS RF: 0 gabapentin 600 mg tablet 1,200 mg PO TID RF: 0 hydrocodone-acetaminophen 5-325 mg tablet 1 tab PO TID RF: 0 bisacodyl 5 mg tablet,delayed release (DR/EC) 15 mg PO WE RF: 0 Referrals / Follow Up: Abhijit Luna DO [Primary Care Provider] - Disposition Disposition (needs filled in before D/C Order can be placed): Home, Self Care
--- NOTE | 2021-11-10 13:33 | PCM.DC.SUM ---
Providers Date of Admission: 11/08/21 Primary Care Physician: Dr. Abhijit Luna, Consultations 11/08/21 12:03 Consult: Hospitalist Routine Consulting Provider: Leta Christianson Reason for Consult: Medical Management EMERGENT Consult: No MD Notified: Yes Date Notified: 11/08/21 Time Notified: 11:27 Method of Notification: Text Reason For Visit: RT NERVE ROOT EXPLORATION Diagnosis Discharge Diagnosis (1) Lumbosacral radiculopathy at L5: Status: Acute Code(s): M54.17 - Radiculopathy, lumbosacral region Medications at Discharge Home Medications fluoxetine 20 mg capsule 20 mg PO DAILY 10/11/20 quetiapine 300 mg tablet 300 mg PO QHS 10/11/20 gabapentin 600 mg tablet 1,200 mg PO TID tab 08/10/21 hydrocodone-acetaminophen 5-325mg 5mg-325mg 1 tab PO TID tab 08/10/21 bisacodyl 5 mg tablet,delayed release 15 mg PO WE 09/09/21 Hospital Course Summary of Care Provided Hospital Course: This Dr. Holt dictating discharge summary on Ashley Black. This patient was admitted on the . Upon admission she underwent removal of the hardware in her back and decompression of the L5 nerve root. Currently she reports that her leg still hurts. Does admit that the upper part is indeed better but the lower part still hurts but it is really more of a tingling and numbness than it is a pain. This is actually a change from before surgery. Before surgery was pain all the way down to the top of her foot from her back in her buttocks down the thigh and down the leg. Now the upper portion is already better lower portion is more numbness and tingling but also some pain. Neurologically she is intact. I changed her dressing that incision is dry and healing well. We gave her directions regarding her activities. She is to take the dressing off on Sunday she can start showering on Sunday. Is to make an appointment to see me in about 2 weeks. Given her oxycodone 10 for pain she may take up to 4 a day. I will see her again in my office in 2 weeks. This is the end of discharge summary on Ashley Black. This is Dr. Holt dictating. Weight / BMI Weight Weight: 154 lb Body Mass Index (BMI) 24.1 ABG / Lab / Microbiology Data Result Diagrams: 10/31/21 12:19 10/31/21 12:19 Microbiology: Microbiology 11/07/21 06:40 Interface Orders SARS-CoV-2 Antigen (Rapid) - Final 10/31/21 12:19 Swab (Method) Nasal Screen MRSA/MSSA - Final Meaningful Use Info Meaningful Use Diagnoses (Choose all that apply): None applicable Discharge Plan Admission Admit Date/Time: 11/08/21 11:25 Primary Reason for Your Visit: surgery Attending Provider: Pelon Holt Primary Care Provider: Abhijit Luna Consulting Providers: Leta Christianson Discharge Orders/Prescriptions Prescriptions: No Action fluoxetine [Prozac] 20 mg capsule 20 mg PO DAILY RF: 0 quetiapine [Seroquel] 300 mg tablet 300 mg PO QHS RF: 0 gabapentin 600 mg tablet 1,200 mg PO TID RF: 0 hydrocodone-acetaminophen 5-325 mg tablet 1 tab PO TID RF: 0 bisacodyl 5 mg tablet,delayed release (DR/EC) 15 mg PO WE RF: 0 Referrals / Follow Up: Abhijit Luna DO [Primary Care Provider] - Disposition Disposition (needs filled in before D/C Order can be placed): Home, Self Care
--- NOTE | 2021-11-10 13:38 | NURSING ---
Dr. Holt was in room with pt and changed drsg and went over drsg care with pt. Pt understands.
--- NOTE | 2021-11-10 13:45 | CASEMGMT ---
Social Work Note SW back in to speak with pt. SW had pt sign KRANTHI for [facility]. KRANTHI signed. Pt completed Safety Plan. Pt refused to sign KRANTHI for support person for this worker to call regarding Safety Plan. Pt stated you don't need to be calling my family regarding me, whatever is said between you and me stays between you and me and my doctor. SW provided pt with Counseling Resources including information on Biofeedback counseling. Dr. Holt then entered room. Of note, pt did tell the physician that her pain was a little alleviated. Once physician left room, SW continued conversation with pt. Pt states that she feels a little better after her conversation with physician. Pt states I'll be okay by myself. SW again asked pt if she would feel comfortable calling any family when she is feeling the need to talk to someone. Pt states they are all working, I don't want to talk to them about myself. SW informed pt that she could always leave a message with her family if they don't answer and then they could call her back. Pt states yeah maybe a day later. SW again informed pt that this worker could call her support person and review plan with them so then maybe if they saw her calling they would answer the phone. Pt again states that this worker doesn't need to call her family. SW reiterated to pt that this worker will be calling [facility] to have them complete a follow up phone call with pt. Pt states understanding. SW asked pt if she would feel comfortable calling the Crisis Line/Number or Suicide Prevention Hotline and pt states no, talking to someone doesn't help me. SW spoke with pt about how discussing the pain pump again with her physician may be beneficial and that that could help to maybe alleviate some of her pain. Pt states I should've just went for the pain pump and not this surgery. SW continued to provide support to pt. Pt with appropriate eye contact and behavior during this conversation. Pt was able to laugh and smile during some parts of the conversation. DOLORES updated physician. DOLORES placed a call to [facility] and spoke with Lacey in Crisis. SW scheduled follow up phone call for [facility]. SW placed KRANTHI and Safety Plan on pt's chart. Plan: Home, with Safety Plan and follow up phone call from [facility]. Lacey Valera RESIDENTIAL DESIGNER, CUSTOM FRAMING SPECIALIST
[2021-11-10 15:00] VITALS: BP 139/83; PULSE 110; RESP 16; TEMP 37; O2SAT 98
== END 2021-11-10 15:19 | disposition home or self-care (01) ==
LOC: MS3 11-09 11:02
PROVIDERS: Anesthesiology; Admitting Provider Orthopaedic Surgery; PCP Preventive Medicine Occupational Medicine; Referring Provider Orthopaedic Surgery; Visit Provider Orthopaedic Surgery
PROC: (CPT 63030; principal; 2021-11-08 07:00)
DX: M54.17 Radiculopathy, lumbosacral region (principal); M35.00 Sjogren syndrome, unspecified; F31.9 Bipolar disorder, unspecified; M54.16 Radiculopathy, lumbar region; M43.17 Spondylolisthesis, lumbosacral region; Z79.899 Other long term (current) drug therapy; Z87.891 Personal history of nicotine dependence
CPT/HCPCS: 63042; 00630; 36415; 72020; 80048; 82962; 83735; 85025; 86703; 86706; 86708; 86803; 87081; 87426; 93005; 96365; 96366; 96375; 96376; 97116; 97162; 99218; 99251; C9803; J7120; A4216; G0378; G0463; J2405; J3475

== ENCOUNTER 2021-11-11 14:56 | Observation (INO) | payer OTHER, SELFPAY ==
[2021-11-11 14:57] VITALS: BP 144/124; PULSE 135; RESP 20; TEMP 36.6; O2SAT 97; BMI 24.1
--- NOTE | 2021-11-11 15:21 | CT_ITS ---
STUDY: CT ABDOMEN AND PELVIS WITH CONTRAST REASON FOR EXAM: Female, 51 years old. ABDOMINAL PAIN AND VOMITING RADIATION DOSAGE (If Supplied By Facility): CTDIvol = ( 8.99 ) mGy, DLP = ( 742.10 ) mGycm TECHNIQUE: Transaxial images were obtained from the dome of the diaphragm to the symphysis pubis without oral contrast. IV 100mL Isovue-300 was administered. Sagittal and coronal images were reconstructed. Individualized dose optimization techniques were used for this CT. COMPARISON: None. FINDINGS: The visualized lung bases are unremarkable. The visualized portions of the heart are within normal limits. Normal liver. Normal gallbladder and extrahepatic biliary system. Normal spleen. Normal pancreas. Normal bilateral adrenal glands. Normal right kidney. Normal left kidney. Severe wall thickening of the antrum of stomach worrisome for gastritis. Clinical correlation and endoscopy would be useful. Normal small intestine. Normal colon. The appendix is visualized and appears normal. Normal abdominal aorta. Normal inferior vena cava. Normal retroperitoneum. Normal urinary bladder. Normal abdominal wall. Mild dextroscoliosis of the thoracolumbar spine with degenerative disc disease. Skin terrence in the midline posteriorly with postoperative changes consistent with recent lumbar spine surgery. CT/Abdomen/Pelvis W IV Cont ONLY IMPRESSION: Suspected gastritis and clinical correlation and endoscopy would be useful. Electronically Signed: Kane Grimes MD at 17:22 EDT ,
--- NOTE | 2021-11-11 15:22 | EDS_ITS ---
HPI History of Present Illness Chief Complaint: Nausea/Vomiting Informant: patient Narrative Narrative: 51-year-old female presents with postoperative nausea and vomiting. Patient underwent decompression and surgical hardware removal on Sunday with Dr. Holt. She states that she was discharged home yesterday. She states she did not have anything to eat while in the hospital and had nausea and vomiting. She has not had a bowel movement and denies passing any flatus. She states that since arriving home she is continued to vomit. She states that she has no nausea medication at home. She denies any fevers. She states that she has been urinating fine. She has been able to drink fluids she states that she called her surgeon's office and they recommended her coming to emergency. She denies any history of ileus, small bowel obstruction, or vomiting after prior surgeries. [facility] Medical History Arthritis Back pain Bipolar disorder Constipation h/o teeth removal History of pain when walking Hoarseness Injury of back Non-smoker Sjogren's syndrome Wears dentures Wears glasses Home Medications fluoxetine 20 mg capsule 20 mg PO DAILY 10/11/20 [History Last Taken 12/22/20 10:00] quetiapine 300 mg tablet 300 mg PO QHS 10/11/20 [History Last Taken 11/07/21 20:00] gabapentin 600 mg tablet 1,200 mg PO TID tab 08/10/21 [History Last Taken 11/08/21 03:30] oxycodone-acetaminophen 1 tab PO Q6H PRN PRN 11/11/21 [History Last Taken Unknown] Allergy/AdvReac Type Severity Reaction Status Date / Time No Known Allergies Allergy Verified 11/11/21 14:59 Family History Father Diabetes Mother Thyroid disorder Surgical History H/O hand surgery H/O: hysterectomy History of fusion of lumbar spine History of lumbar fusion Social History household members: spouse Smoking Status: Never smoker alcohol intake: never what type of physical activity do you participate in: none do you feel safe at home: Yes ROS ROS ED Constitutional Constitutional ED: Denies chills, fever(s) or weight loss Eyes Eyes: Denies change in vision or diplopia ENT ENT ED: Denies ear pain, rhinorrhea or sore throat Cardiovascular Cardiovascular: Denies chest pain, orthopnea, palpitations or racing heartbeat Respiratory/Chest Respiratory/Chest: Denies cough, dyspnea or orthopnea Gastrointestinal Gastrointestinal: Reports abdominal pain and nausea; Denies diarrhea or vomiting Genitourinary Genitourinary ED: Denies dysuria, hematuria or urinary frequency Musculoskeletal Musculoskeletal: Reports back pain; Denies arthralgias or myalgias Integumentary Denies abscess or rash Neurologic Neurologic: Denies headache(s) or weakness Psychiatric Psychiatric: Denies anxiety, depression, suicidal ideation or suicidal thoughts Endocrine Endocrinology: Denies polydipsia, polyphagia or polyuria Allergic/Immunologic Allergic/Immunologic ED: Denies mouth swelling, tongue swelling or urticaria EXAM Physical Exam Const Vital Signs: 11/11/21 14:57 11/11/21 16:53 Temperature 98 F Temperature Source Temporal Pulse Rate 135 H 99 Respiratory Rate 20 H 14 Blood Pressure 144/124 H 135/90 H Blood Pressure Mean 130 105 Pulse Ox 97 100 Oxygen Delivery Method Room Air Room Air Positive well nourished and well developed General Appearance ED: well developed HEENT Reports normocephalic, head/scalp atraumatic, TM's clear and moist mucous membranes Negative for trauma Tympanic Membrane ED: Yes TM's clear Eyes PERRL and EOMs intact bilaterally Neck no lymphadenopathy, supple and no JVD Resp normal respiratory effort and clear to auscultation bilaterally Cardio regular rate, regular rhythm and no murmurs GI normal to inspection, nondistended, normoactive bowel sounds and non-tender Palpation: soft Back/Spine no CVA tenderness and normal ROM Extremity Extremity Narrative: Healing surgical area General Extremety ED: Negative for edema General Extremity: Negative for edema Neuro oriented x3 and CN's II-XII intact bilaterally Sensorium / Orientation: alert Motor Exam: strength 5/5 throughout Psych mental status grossly normal Mood & Affect: Negative for depressed or tearful Skin no rashes or lesions noted and no wounds MDM MDM MDM Narrative Medical decision making narrative: White count at 8.4 with a hemoglobin of 12. Platelets of 410. CMP is normal. Urinalysis demonstrates 25-50 white cells no bacteria negative nitrates and she is asymptomatic from a urine standpoint. Patient received IV fluids as well as Zofran and then later morphine and Reglan and Protonix. CT the abdomen pelvis demonstrates thickening of the stomach but no obstruction. There are no air-fluid levels noted. Patient continues to have vomiting. I will make attempt to speak with her surgeon. I will also speak with the hospitalist regarding potential admission. Lab Data Attestation: I reviewed the patient's lab results. Labs: Laboratory Results - last 24 hr 11/11/21 11/11/21 11/11/21 15:37 15:37 16:30 WBC 8.4 RBC 3.70 L Hgb 12.0 Hct 36.2 L MCV 97.8 MCH 32.4 H MCHC 33.1 RDW Std Deviation 45.5 H RDW Coeff of Nohelia 12.6 Plt Count 410 MPV 9.4 Immature Gran % (Auto) 0.200 Neut % (Auto) 70.3 H Lymph % (Auto) 19.8 [place] % (Auto) 8.2 Eos % (Auto) 0.9 Baso % (Auto) 0.6 Absolute Neuts (auto) 5.9 Absolute Lymphs (auto) 1.67 Nucleated RBC % 0 Sodium 136 Potassium 4.9 Chloride 103 Carbon Dioxide 29.0 Anion Gap 4 L BUN 8 Creatinine 0.98 Estim Creat Clear Calc 66.04 Est GFR (MDRD) Af Amer 77 Est GFR (MDRD) Non-Af 63 BUN/Creatinine Ratio 8.1 L Glucose 138 H Calcium 9.5 Total Bilirubin 0.40 AST 34 ALT 17 Alkaline Phosphatase 100 Total Protein 7.4 Albumin 3.5 Globulin 3.9 Albumin/Globulin Ratio 0.9 Lipase 80 Urine Color Yellow Urine Clarity Sl. Cloudy Urine pH 8.0 Ur Specific [place] 1.010 Urine Protein 15 H Urine Glucose (UA) Normal Urine Ketones Negative Urine Occult Blood 150 H Urine Nitrite Negative Urine Bilirubin Negative Urine Urobilinogen Normal Ur Leukocyte Esterase 500 H Urine RBC 0-5 SEEN Urine WBC 25-50 SEEN Ur Squamous Epith Cells 0-5 SEEN Urine Bacteria 0 SEEN Urine Mucus 0 SEEN Radiography Diagnostic Testing: Clinical Impression(s) from Imaging Studies Abdomen/Pelvis CT 11/11/21 15:21 IMPRESSION: Suspected gastritis and clinical correlation and endoscopy would be useful. Electronically Signed: Kane Grimes MD at 17:22 EDT , Discharge Plan Dx/Rx/DC Orders Clinical Impression: Ileus, Abdominal pain, Gastritis, Vomiting Disposition Disposition: Acute Care Hospital [facility]
[2021-11-11] MEDS: Ondansetron 4 MG/2 ML Vial IV (15:35)
[2021-11-11] MEDS: 0.9% Normal Saline 1,000 ML 1000 ML IV (15:35)
[2021-11-11 15:43] LABS: Absolute Lymphocyte Count 1.67 X10^3/uL (0.83-4.51); Absolute Neutrophil Count 5.9 X10^3/uL (2.0-7.7); Basophil# 0.05 X10^3/uL; Basophil% 0.6 % (0-1); Eosinophil# 0.08 X10^3/uL; Eosinophils% 0.9 % (0-5); Hematocrit 36.2 % (37-47); Lymphocyte # 1.67 X10^3/ul (0.83-4.51); Lymphocyte % 19.8 % (19-41); Mean Corp Hgb Conc 33.1 g/dL (32-36); Mean Corpuscular Hgb 32.4 pg (27.0-32.0); Mean Corpuscular Volume 97.8 fL (81-99); Mean Platelet Vol. 9.4 fl (6.2-12.0); Monocyte# 0.69 X10^3/uL; Monocyte% 8.2 % (0-10); NRBC Flagged by Analyzer 0 % (0-5); Neutrophil # 5.93 X10^3/uL (2.7-7.7); Neutrophil % 70.3 % (47-70); Platelet Count 410 K/mm3 (150-450); RBC Distribution Width CV 12.6 % (11.6-14.6); RBC Distribution Width SD 45.5 fl (35.1-43.9); White Blood Count 8.4 K/mm3 (4.4-11.0)
[2021-11-11 16:01] LABS: ALB/GLOB Ratio 0.9 RATIO (0.9-2.4); AST(SGOT) 34 U/L (15-37); Alanine Aminotransfer ALT/SGPT 17 U/L (13-56); Albumin, Serum 3.5 g/dL (3.2-5.0); Alkaline Phosphatase 100 U/L (45-117); Anion Gap 4 (5-15); BUN 8 mg/dL (7-18); BUN/Creat Ratio 8.1 RATIO (10-20); Calcium,Total 9.5 mg/dL (8.5-10.1); Chloride 103 mmol/L (98-107); Creatinine, Serum 0.98 mg/dL (0.55-1.02); EST Glomerular Filtration Rate 63 mL/min (>60); Est Glom Filt Rate - Afr Amer 77 mL/min (>60); Estimated Creatinine Clearance 66.04 ml/min; Globulin 3.9 g/dL (2.2-4.2); Glucose 138 mg/dL (74-106); Lipase 80 U/L (73-393); Potassium 4.9 mmol/L (3.5-5.1); Protein, Total 7.4 g/dL (6.4-8.2); Sodium Level 136 mmol/L (136-145)
[2021-11-11 16:38] LABS: Bacteria 0 SEEN /hpf (None Seen); Mucous, Urine 0 SEEN /hpf (<or=2+)
[2021-11-11 16:45] LABS: Color, Urine Yellow (Yellow); Glucose, Dipstick Normal (Normal); Ketone-Dipstick Negative (Negative); Leukocyte Esterase-Dipstick 500 /ul (Negative); Nitrite-Dipstick Negative (Negative); Occult Blood-Urine 150 /ul (Negative); Protein-Dipstick 15 mg/dl (Negative); Urine Bilirubin Dipstick Negative (Negative); Urine Clarity Sl. Cloudy (Clear); Urine Urobilinogen Normal (Normal)
[2021-11-11 16:53] VITALS: BP 135/90; PULSE 99; RESP 14; O2SAT 100
--- NOTE | 2021-11-11 16:55 | RAD.NOTE ---
Iv extravasation- Pt's nurse Jaci notified.
[2021-11-11 16:57] LABS: Red Blood Cells-Urine 0-5 SEEN /hpf (0-5); Squamous Epithelial Cells - UA 0-5 SEEN /hpf (5-10); White Blood Cells 25-50 SEEN /hpf (0-5)
[2021-11-11] MEDS: Metoclopramide 10 MG/2 ML Vial IV (17:40)
[2021-11-11] MEDS: Morphine 2 MG/ML Syringe IV (17:57)
[2021-11-11 18:14] VITALS: BP 125/70; PULSE 88; RESP 23; TEMP 37.1; O2SAT 99
--- NOTE | 2021-11-11 18:18 | HP.PCM.HOS_ITS ---
HPI - General General Date of Admission: 11/11/21 Date of Service: 11/11/21 Chief Complaint: Nausea, emesis, recently post-op HPI Narrative The patient is a 51 y/o F w/ PMHx: Sjogren's syndrome, Bipolar disorder, Chronic back pain s/p prior lumbar laminectomy, recently underwent 11/08/21 L4-L5 laminectomy per Dr. Holt discharged on 11/10/21 who now re-presents to the [facility] ED on 11/11/21 with history of ongoing postoperative nausea and emesis reporting persistent nausea during the admission and poor intake with no bowel movement or any flatus since recent discharge with continued emesis at home with no nausea medications with appropriate urination and no fevers or chills and ability to at least consume liquids but given ongoing symptoms surgeon recommended ED evaluation. She reports epigastric discomfort, dull aching, 3-4/10, worse with palpation on evaluation. Work-up in the ED included T98.6, heart rate initially 110 with most recent 99, BP 139/83, respiratory rate 16, 98% on room air, CBC with WC 8.4, hemoglobin 12, platelet 410 without marked shift, CMP with glucose 138 otherwise unremarkable, lipase 80, urinalysis not marked appearing with no marked evidence of dehydration on this of note, CT abdomen and pelvis with f indings suspicious for possible gastritis. In the ED patient ministered Protonix IV 40 mg x 1, Zofran, Reglan 10 mg IV x1, morphine and a normal saline bolus. ED in the process of attempting to reach Dr. Holt. [facility] Medical History Arthritis Back pain Bipolar disorder Constipation h/o teeth removal History of pain when walking Hoarseness Injury of back Non-smoker Sjogren's syndrome Wears dentures Wears glasses Home Medications fluoxetine 20 mg capsule 20 mg PO DAILY 10/11/20 [History Last Taken 12/22/20 10:00] quetiapine 300 mg tablet 300 mg PO QHS 10/11/20 [History Last Taken 11/07/21 20:00] gabapentin 600 mg tablet 1,200 mg PO TID tab 08/10/21 [History Last Taken 11/08/21 03:30] oxycodone-acetaminophen 1 tab PO Q6H PRN PRN 11/11/21 [History Last Taken Unknown] Allergy/AdvReac Type Severity Reaction Status Date / Time No Known Allergies Allergy Verified 11/11/21 14:59 Family History Father Diabetes Mother Thyroid disorder Surgical History H/O hand surgery H/O: hysterectomy History of fusion of lumbar spine History of lumbar fusion Social History household members: spouse Smoking Status: Former smoker alcohol intake: never what type of physical activity do you participate in: none do you feel safe at home: Yes ROS ROS Narrative Admission Review of Systems: CONSTITUTIONAL: No weight loss, fever, chills, + weakness or fatigue. HEENT: Eyes: No visual loss, blurred vision, double vision or yellow sclerae. Ears, Nose, Throat: No hearing loss, sneezing, congestion, runny nose or sore throat. SKIN: No rash or itching, lesions, wounds. CARDIOVASCULAR: No chest pain, chest pressure or chest discomfort, palpitations, edema, orthopnea, syncopal events. RESPIRATORY: No shortness of breath, cough or sputum, wheezing, hemoptysis. GASTROINTESTINAL: + anorexia, nausea, vomiting, constipation, epigastric discomfort, No diarrhea, melena, BRBPR. GENITOURINARY: No dysuria, frequency, urgency or retention. NEUROLOGICAL: No headache, dizziness, syncope, paralysis, ataxia, numbness or tingling in the extremities, focal weakness, change in bowel or bladder control, seizure. MUSCULOSKELETAL: + muscle, back pain, joint pain or stiffness. HEMATOLOGIC: No anemia, bleeding or bruising. LYMPHATICS: No enlarged nodes. No history of splenectomy. PSYCHIATRIC: + history of depression or anxiety. ENDOCRINOLOGIC: No reports of sweating, cold or heat intolerance. No polyuria or polydipsia. ALLERGIES: No history of asthma, hives, eczema or rhinitis. Vital Signs Vital Signs Vital Signs: 11/11/21 14:57 11/11/21 16:53 11/11/21 18:14 Temperature 98 F 98.8 F Temperature Source Temporal Temporal Pulse Rate 135 H 99 88 Respiratory Rate 20 H 14 23 H Blood Pressure 144/124 H 135/90 H 125/70 H Blood Pressure Mean 130 105 88 Pulse Ox 97 100 99 Oxygen Delivery Method Room Air Room Air Room Air Weight Weight: 154 lb Body Mass Index (BMI) 24.1 Physical Exam Narrative Physical Examination: General: Awake, alert, oriented x 3 and cooperative, laying in the ED bed, fatigued appearing. Skin: Normal color, normal turgor, no icterus, no cyanosis except recent posterior lumbar incision, terrence in place, no drainage. HEENT: AT/NC, EOMI, PERRLA, moderately dry MM, no carotid bruits or JVD noted. Lungs: Mild diminished, greater bases, appropriate effort, no rales, ronchi or wheezing. Heart: Currently regular rate and rhythm; no gallop, rub audible. Abdomen: Soft, mild epigastric tenderness otherwise NTTP, ND, mildly hypoactive BS, no HSM. Extremities: No cyanosis, clubbing, or edema. Neurological: Patient awake, alert, oriented as noted, cognitive function intact; pupils equally reactive to light and accommodation, cranial nerves II- XII grossly normal, moving all 4 extremities, no focal deficits, strength mildly to moderately decreased given recent OR and acute presentation Psychiatric: Affect appears fatigued otherwise normal, no acute evidence of depressive or anxiety feelings. Results Lab / Micro Data Result Diagrams: 11/11/21 15:37 11/11/21 15:37 Labs: Laboratory Results - last 24 hr 11/11/21 15:37: WBC 8.4, RBC 3.70 L, Hgb 12.0, Hct 36.2 L, MCV 97.8, MCH 32.4 H, MCHC 33.1, RDW Std Deviation 45.5 H, RDW Coeff of Nohelia 12.6, Plt Count 410, MPV 9.4, Immature Gran % (Auto) 0.200, Neut % (Auto) 70.3 H, Lymph % (Auto) 19.8, [place] % (Auto) 8.2, Eos % (Auto) 0.9, Baso % (Auto) 0.6, Absolute Neuts (auto) 5.9, Absolute Lymphs (auto) 1.67, Nucleated RBC % 0 11/11/21 15:37: Sodium 136, Potassium 4.9, Chloride 103, Carbon Dioxide 29.0, Anion Gap 4 L, BUN 8, Creatinine 0.98, Estim Creat Clear Calc 66.04, Est GFR (MDRD) Af Amer 77, Est GFR (MDRD) Non-Af 63, BUN/Creatinine Ratio 8.1 L, Glucose 138 H, Calcium 9.5, Total Bilirubin 0.40, AST 34, ALT 17, Alkaline Phosphatase 100, Total Protein 7.4, Albumin 3.5, Globulin 3.9, Albumin/Globulin Ratio 0.9, Lipase 80 11/11/21 16:30: Urine Color Yellow, Urine Clarity Sl. Cloudy, Urine pH 8.0, Ur Specific [place] 1.010, Urine Protein 15 H, Urine Glucose (UA) Normal, Urine Ketones Negative, Urine Occult Blood 150 H, Urine Nitrite Negative, Urine Bilirubin Negative, Urine Urobilinogen Normal, Ur Leukocyte Esterase 500 H, Urine RBC 0-5 SEEN, Urine WBC 25-50 SEEN, Ur Squamous Epith Cells 0-5 SEEN, Urine Bacteria 0 SEEN, Urine Mucus 0 SEEN Radiology Impression Abdomen/Pelvis CT 11/11/21 15:21 IMPRESSION: Suspected gastritis and clinical correlation and endoscopy would be useful. Electronically Signed: Kane Grimes MD at 17:22 EDT , Assessment & Plan Assessment/Plan (1) Abdominal pain: QUALIFIERS: Abdominal location: unspecified location Qualified Code(s): R10.9 - Unspecified abdominal pain (2) Gastritis: QUALIFIERS: Chronicity: acute Gastritis bleeding: without bleeding Gastritis type: unspecified gastritis Qualified Code(s): K29.00 - Acute gastritis without bleeding (3) Vomiting: QUALIFIERS: Nausea presence: with nausea Vomiting type: unspecified Qualified Code(s): R11.2 - Nausea with vomiting, unspecified PLAN: The patient is a 51 y/o F w/ PMHx: Sjogren's syndrome, Bipolar disorder, Chronic back pain s/p prior lumbar laminectomy, recently underwent 11/08/21 L4-L5 laminectomy per Dr. Ontiveros discharged on 11/10/21 who now re- presents to the [facility] ED on 11/11/21 with history of ongoing postoperative nausea and emesis reporting persistent nausea during the admission and poor intake with no bowel movement or any flatus since recent discharge with continued emesis at home with no nausea medications with appropriate urination and no fevers or chills and ability to at least consume liquids but given ongoing symptoms surgeon recommended ED evaluation. #1. Intractable nausea and emesis, postoperatively, possible ileus w/ Acute Gastritis: Although no significant evidence of dehydration on labs or vitals patient with ongoing symptoms, will admit to medical surgical floor, maintain on aspiration precautions, administer antiemetic regimen, judiciously hydrate, maintain on IV Protonix given gastritis findings as well as will attempt Carafate if able to tolerate, allow clears and advance diet as tolerated. Will initiate bowel regimen given patient complaints of no recent bowel movement. #2. Chronic Back Pain with RLE Radiculopathy: Recent admission per Dr. Holt with repeat laminectomy L4-L5 on the right and removal of hardware L4-S1 secondary to severe right L5 radiculopathy with history of L4-S1 fusion, will continue recent discharge pain regimen as well as gabapentin regimen. Initiat ing bowel regimen given constipation complaints. #3. Bipolar disorder: Continue home fluoxetine, Seroquel regimen. #4. Sjogren's syndrome: Not on any medication, encourage continued outpatient e valuation. #5. DVT prophylaxis: SCDs, hold chemoprophylaxis given recent OR and preference per surgery. Charges/Coding Visit Charges OBSV E&M: 87112 Initial observation care L2
[2021-11-11 18:24] VITALS: BP 120/70; PULSE 81; RESP 16; TEMP 37.1; O2SAT 98
[2021-11-11 19:25] VITALS: BMI 24.0
[2021-11-11 19:32] VITALS: BP 137/83; PULSE 77; RESP 16; TEMP 37; O2SAT 100
[2021-11-11] MEDS: 0.9% Normal Saline 1,000 ML 125 ML IV (20:01)
[2021-11-11] MEDS: Polyethylene Glycol 3350 17 GM PACKET PO (20:07)
[2021-11-11] MEDS: Bisacodyl 10 MG Suppository RC (20:07)
[2021-11-11] MEDS: Mag Hydrox/Al Hydrox/Simeth 30 ML UDC PO (21:10)
[2021-11-11] MEDS: Sucralfate 1 GM Tablet PO (21:11)
[2021-11-11] MEDS: QUEtiapine 100 MG Tablet 300 MG PO (21:13)
[2021-11-11] MEDS: Gabapentin 600 MG Tablet 1200 MG PO (21:13)
[2021-11-12] MEDS: 0.9% Normal Saline 1,000 ML 125 ML IV (04:05)
[2021-11-12] MEDS: Sucralfate 1 GM Tablet PO (05:57)
[2021-11-12] MEDS: Gabapentin 600 MG Tablet 1200 MG PO (05:59)
[2021-11-12 06:02] VITALS: BP 117/77; PULSE 99; RESP 16; TEMP 37.1; O2SAT 99
[2021-11-12] MEDS: oxyCODONE 5 MG Tablet 10 MG PO (06:07)
[2021-11-12 06:53] LABS: Absolute Lymphocyte Count 2.47 X10^3/uL (0.83-4.51); Absolute Neutrophil Count 3.5 X10^3/uL (2.0-7.7); Basophil# 0.04 X10^3/uL; Basophil% 0.6 % (0-1); Eosinophil# 0.38 X10^3/uL; Eosinophils% 5.4 % (0-5); Hematocrit 31.6 % (37-47); Hemoglobin 10.5 g/dL (12.0-15.0); Lymphocyte # 2.47 X10^3/ul (0.83-4.51); Lymphocyte % 35.4 % (19-41); Mean Corp Hgb Conc 33.2 g/dL (32-36); Mean Corpuscular Hgb 32.3 pg (27.0-32.0); Mean Corpuscular Volume 97.2 fL (81-99); Mean Platelet Vol. 8.9 fl (6.2-12.0); Monocyte% 8.6 % (0-10); NRBC Flagged by Analyzer 0 % (0-5); Neutrophil # 3.47 X10^3/uL (2.7-7.7); Neutrophil % 49.7 % (47-70); Platelet Count 351 K/mm3 (150-450); RBC Distribution Width CV 12.7 % (11.6-14.6); RBC Distribution Width SD 45.6 fl (35.1-43.9); Red Blood Count 3.25 M/mm3 (4.2-5.4)
[2021-11-12 07:17] LABS: ALB/GLOB Ratio 0.9 RATIO (0.9-2.4); AST(SGOT) 18 U/L (15-37); Alanine Aminotransfer ALT/SGPT 15 U/L (13-56); Albumin, Serum 2.9 g/dL (3.2-5.0); Alkaline Phosphatase 83 U/L (45-117); Anion Gap 3 (5-15); BUN 7 mg/dL (7-18); BUN/Creat Ratio 9.2 RATIO (10-20); Calcium,Total 8.4 mg/dL (8.5-10.1); Chloride 110 mmol/L (98-107); Creatinine, Serum 0.76 mg/dL (0.55-1.02); EST Glomerular Filtration Rate 85 mL/min (>60); Est Glom Filt Rate - Afr Amer 102 mL/min (>60); Estimated Creatinine Clearance 85.16 ml/min; Globulin 3.2 g/dL (2.2-4.2); Glucose 109 mg/dL (74-106); Potassium 3.8 mmol/L (3.5-5.1); Protein, Total 6.1 g/dL (6.4-8.2); Sodium Level 138 mmol/L (136-145)
[2021-11-12] MEDS: 0.9% Saline Lock 10 ML Syringe IV (08:39)
[2021-11-12] MEDS: Ondansetron 4 MG/2 ML Vial IV (08:39)
[2021-11-12 09:15] VITALS: BP 119/75; PULSE 106; RESP 17; TEMP 37.2; O2SAT 96
--- NOTE | 2021-11-12 10:24 | PCM.DC ---
Discharge Instructions Diet Discharge Diet: No restrictions Dressing / Incision Call your doctor if you observe: Fever of 101 or Higher, Shortness of breath, Dizziness, Fainting spells, Swelling in the ankles, Chest pain and Increased palpitations (irregular heartbeat) Follow Up Care Test Results: Test results from this visit will be discussed in further detail at your follow-up appointment, if applicable. Discharge Plan Admission Admit Date/Time: 11/11/21 18:19 Attending Provider: Curtis Keys Primary Care Provider: Abhijit Luna Discharge Orders/Prescriptions Prescriptions: Continued fluoxetine [Prozac] 20 mg capsule 20 mg PO DAILY RF: 0 quetiapine [Seroquel] 300 mg tablet 300 mg PO QHS RF: 0 gabapentin 600 mg tablet 1,200 mg PO TID RF: 0 oxycodone-acetaminophen 10-325 mg tablet 1 tab PO Q6H PRN PRN (Reason: Pain) RF: 0 Referrals / Follow Up: Abhijit Luna DO [Primary Care Provider] - Within 1 Week Disposition Disposition (needs filled in before D/C Order can be placed): Home, Self Care
--- NOTE | 2021-11-12 10:26 | DS.PCM_ITS ---
Providers Date of Admission: 11/11/21 Primary Care Physician: Dr. Abhijit Luna DO Reason For Visit: INTRACTABLE NAUSEA/EMESIS Diagnosis Discharge Diagnosis (1) Abdominal pain: Status: Acute Code(s): R10.9 - Unspecified abdominal pain Qualifiers: Abdominal location: unspecified location Qualified Code(s): R10.9 - Unspecified abdominal pain (2) Gastritis: Status: Acute Code(s): K29.70 - Gastritis, unspecified, without bleeding Qualifiers: Gastritis type: unspecified gastritis Chronicity: acute Gastritis bleeding: without bleeding Qualified Code(s): K29.00 - Acute gastritis without bleeding (3) Vomiting: Status: Acute Code(s): R11.10 - Vomiting, unspecified Qualifiers: Vomiting type: unspecified Nausea presence: with nausea Qualified Code(s): R11.2 - Nausea with vomiting, unspecified Medications at Discharge Home Medications fluoxetine 20 mg capsule 20 mg PO DAILY 10/11/20 quetiapine 300 mg tablet 300 mg PO QHS 10/11/20 gabapentin 600 mg tablet 1,200 mg PO TID tab 08/10/21 oxycodone-acetaminophen 1 tab PO Q6H PRN PRN 11/11/21 Hospital Course Operations None Procedures None Summary of Care Provided Minutes Spent on Discharge: 42 Hospital Course: Per HPI: The patient is a 51 y/o F w/ PMHx: Sjogren's syndrome, Bipolar disorder, Chronic back pain s/p prior lumbar laminectomy, recently underwent 11/08/21 L4-L5 laminectomy per Dr. Holt discharged on 11/10/21 who now re- presents to the [facility] ED on 11/11/21 with history of ongoing postoperative nausea and emesis reporting persistent nausea during the admission and poor intake with no bowel movement or any flatus since recent discharge with continued emesis at home with no nausea medications with appropriate urination and no fevers or chills and ability to at least consume liquids but given ongoing symptoms surgeon recommended ED evaluation. She reports epigastric discomfort, dull aching, 3-4/10, worse with palpation on evaluation. Work-up in the ED included T98.6, heart rate initially 110 with most recent 99, BP 139/83, respiratory rate 16, 98% on room air, CBC with WC 8.4, hemoglobin 12, platelet 410 without marked shift, CMP with glucose 138 otherwise unremarkable, lipase 80, urinalysis not marked appearing with no marked evidence of dehydration on this of note, CT abdomen and pelvis with findings suspicious for possible gastritis. In the ED patient ministered Protonix IV 40 mg x 1, Zofran, Reglan 10 mg IV x1, morphine and a normal saline bolus. ED in the process of attempting to reach Dr. Holt. Hospital course: 1. Intractable nausea and vomiting with possible ileus?51-year-old female who is status post an L4-L5 laminectomy on 11/08/2021 was discharged on 11/10/2021 and then presented back to the hospital today after discharge because of nausea and vomiting. She states that she had a suppository overnight while here in the hospital and she did start passing some flatus and have a small bowel movement. I discussed with her the possibility of discharge she said she would like to go home today. She expressed understanding of the risk and benefits of discharge. I did discuss with her the need to continue a bowel regimen at home while on narcotics as well as being ambulatory. She says that she has some stool softeners and MiraLAX at home and she should be okay from that standpoint. We also did review an appropriate diet while recovering from surgery, however we will plan for discharge today. I do recommend that she follow-up with her PCP within a week and also follow-up with her surgeon as previously scheduled. 2. Chronic back pain with right lower extremity radiculopathy, bipolar disorder, Sjogren's syndrome all chronic medical conditions which complicate her care. Her home medications were continued where appropriate Physical Exam Const alert, oriented x3 and no apparent distress General Appearance: cooperative HEENT normocephalic and moist oral mucous membranes Eyes PERRL, EOMs intact bilaterally and conjunctivae normal Neck supple and no JVD Resp normal respiratory effort, no retractions, no use of accessory muscles and clear to auscultation bilaterally Auscultation: Negative for crackles, rales, rhonchi or wheezes Cardio regular rate, regular rhythm, S1 normal heart sound, S2 normal heart sound and no murmurs GI soft to palpation, non-tender and non-distended; Negative for hepatosplenomegaly Extremity no clubbing, cyanosis or edema Skin no rashes or lesions noted Skin Narrative: Incision CDI Neuro no focal motor deficits and no sensory deficits noted Psych affect normal Appearance: appropriate Weight / BMI Weight Weight: 153 lb 10.595 oz Body Mass Index (BMI) 24.0 ABG / Lab / Microbiology Data Result Diagrams: 11/12/21 06:42 11/12/21 06:42 Laboratory: Laboratory Results - last 24 hr 11/11/21 15:37: WBC 8.4, RBC 3.70 L, Hgb 12.0, Hct 36.2 L, MCV 97.8, MCH 32.4 H, MCHC 33.1, RDW Std Deviation 45.5 H, RDW Coeff of Nohelia 12.6, Plt Count 410, MPV 9.4, Immature Gran % (Auto) 0.200, Neut % (Auto) 70.3 H, Lymph % (Auto) 19.8, [place] % (Auto) 8.2, Eos % (Auto) 0.9, Baso % (Auto) 0.6, Absolute Neuts (auto) 5.9, Absolute Lymphs (auto) 1.67, Nucleated RBC % 0 11/11/21 15:37: Sodium 136, Potassium 4.9, Chloride 103, Carbon Dioxide 29.0, An ion Gap 4 L, BUN 8, Creatinine 0.98, Estim Creat Clear Calc 66.04, Est GFR (MDRD) Af Amer 77, Est GFR (MDRD) Non-Af 63, BUN/Creatinine Ratio 8.1 L, Glucose 138 H, Calcium 9.5, Total Bilirubin 0.40, AST 34, ALT 17, Alkaline Phosphatase 100, Total Protein 7.4, Albumin 3.5, Globulin 3.9, Albumin/Globulin Ratio 0.9, Lipase 80 11/11/21 16:30: Urine Color Yellow, Urine Clarity Sl. Cloudy, Urine pH 8.0, Ur Specific [place] 1.010, Urine Protein 15 H, Urine Glucose (UA) Normal, Urine Ketones Negative, Urine Occult Blood 150 H, Urine Nitrite Negative, Urine Bilirubin Negative, Urine Urobilinogen Normal, Ur Leukocyte Esterase 500 H, Urine RBC 0-5 SEEN, Urine WBC 25-50 SEEN, Ur Squamous Epith Cells 0-5 SEEN, Urine Bacteria 0 SEEN, Urine Mucus 0 SEEN 11/12/21 06:42: WBC 7.0, RBC 3.25 L, Hgb 10.5 L, Hct 31.6 L, MCV 97.2, MCH 32.3 H, MCHC 33.2, RDW Std Deviation 45.6 H, RDW Coeff of Nohelia 12.7, Plt Count 351, MPV 8.9, Immature Gran % (Auto) 0.300, Neut % (Auto) 49.7, Lymph % (Auto) 35.4, [place] % (Auto) 8.6, Eos % (Auto) 5.4 H, Baso % (Auto) 0.6, Absolute Neuts (auto) 3.5, Absolute Lymphs (auto) 2.47, Nucleated RBC % 0 11/12/21 06:42: Sodium 138, Potassium 3.8, Chloride 110 H, Carbon Dioxide 25.0, Anion Gap 3 L, BUN 7, Creatinine 0.76, Estim Creat Clear Calc 85.16, Est GFR (MDRD) Af Amer 102, Est GFR (MDRD) Non-Af 85, BUN/Creatinine Ratio 9.2 L, Glucose 109 H, Calcium 8.4 L, Total Bilirubin 0.40, AST 18, ALT 15, Alkaline Phosphatase 83, Total Protein 6.1 L, Albumin 2.9 L, Globulin 3.2, Albumin/Globul in Ratio 0.9 Radiography Diagnostic Testing: Radiology Impression Abdomen/Pelvis CT 11/11/21 15:21 IMPRESSION: Suspected gastritis and clinical correlation and endoscopy would be useful. Electronically Signed: Kane Grimes MD at 17:22 EDT Reading Location ID and State: [address] [place] [address] Tel , Service support , D/C Instructions Discharge Diet: No restrictions Call your doctor if you observe: Fever of 101 or Higher, Shortness of breath, Dizziness, Fainting spells, Swelling in the ankles, Chest pain and Increased palpitations (irregular heartbeat) Meaningful Use Info Meaningful Use Diagnoses (Choose all that apply): None applicable Discharge Plan Admission Admit Date/Time: 11/11/21 18:19 Attending Provider: Curtis Keys Primary Care Provider: Abhijit Luna Discharge Orders/Prescriptions Prescriptions: Continued fluoxetine [Prozac] 20 mg capsule 20 mg PO DAILY RF: 0 quetiapine [Seroquel] 300 mg tablet 300 mg PO QHS RF: 0 gabapentin 600 mg tablet 1,200 mg PO TID RF: 0 oxycodone-acetaminophen 10-325 mg tablet 1 tab PO Q6H PRN PRN (Reason: Pain) RF: 0 Referrals / Follow Up: Abhijit Luna DO [Primary Care Provider] - Within 1 Week Disposition Disposition (needs filled in before D/C Order can be placed): Home, Self Care Charges/Coding Visit Charges OBSV E&M: 99913 Observation care discharge
== END 2021-11-12 11:02 | disposition home or self-care (01) ==
LOC: ED 18:12 → MS3 18:41
PROVIDERS: Admitting Provider Family Medicine; Emergency Provider Emergency Medicine; PCP Preventive Medicine Occupational Medicine; Referring Provider Family Medicine; Visit Provider Family Medicine
DX: K29.01 Acute gastritis with bleeding (principal); M35.00 Sjogren syndrome, unspecified; F31.9 Bipolar disorder, unspecified; Z87.891 Personal history of nicotine dependence; M54.10 Radiculopathy, site unspecified; M54.9 Dorsalgia, unspecified; G89.29 Other chronic pain; Z79.899 Other long term (current) drug therapy; M19.90 Unspecified osteoarthritis, unspecified site
CPT/HCPCS: 36415; 74177; 80053; 81001; 83690; 85025; 96361; 96365; 96375; 96376; 99218; 99285; J7030; Q9967; A4216; G0378; J2405

== ENCOUNTER 2022-02-10 06:57 | Day surgery (SDC) | payer OTHER, SELFPAY ==
[2022-02-10] MEDS: Lactated Ringers 1,000 ML 15 ML IV (07:15)
[2022-02-10 07:37] VITALS: BP 121/78; PULSE 90; RESP 18; TEMP 36.7; O2SAT 96; BMI 21.4
--- NOTE | 2022-02-10 09:04 | RAD_ITS ---
PROCEDURE: Spinal cord stimulator insertion. DATE OF EXAMINATION: 02/10/2022. INDICATION: Female, 51 years old. Chronic back pain. FLUOROSCOPY TIME (if supplied): (8 minutes and 7 seconds) minutes/seconds. 8 intraoperative images were submitted. RAD/Lumbar Spine 2 or 3 Views IMPRESSION: Intraoperative imaging provided for spinal cord stimulator placement. Electronically Signed: Dutch Whitfield MD at 10:58 EDT ,
[2022-02-10] MEDS: Bupivacaine 0.25% 30 ML Vial (09:22)
[2022-02-10] MEDS: Lidocaine 1% /Epi 1:100 (20ml) 20 ML Vial (09:22)
[2022-02-10 11:12] VITALS: BP 106/86; BP 121/78; PULSE 63; RESP 16; TEMP 37.2; O2SAT 97
[2022-02-10 11:15] VITALS: BP 107/75; BP 121/78; PULSE 71; RESP 16; O2SAT 95
[2022-02-10 11:20] VITALS: BP 121/78; BP 98/70; PULSE 73; RESP 16; O2SAT 98
[2022-02-10 11:25] VITALS: BP 101/59; BP 121/78; PULSE 69; RESP 16; TEMP 37; O2SAT 97
[2022-02-10 12:00] VITALS: BP 121/78
== END 2022-02-10 12:06 | disposition home or self-care (01) ==
LOC: SDC 06:58 → AC 06:58
PROVIDERS: PCP Preventive Medicine Occupational Medicine; Referring Provider Anesthesiology Pain Medicine; Visit Provider Anesthesiology Pain Medicine
PROC: (CPT 63685; principal; 2022-02-10 08:15)
DX: M51.16 Intervertebral disc disorders with radiculopathy, lumbar region (principal); M51.17 Intervertebral disc disorders with radiculopathy, lumbosacral region; M96.1 Postlaminectomy syndrome, not elsewhere classified
CPT/HCPCS: 63685; 63650; 72100; 76000; C1778; J7120; J2405

== ENCOUNTER → 2022-03-06 | Outpatient (CLI) | payer OTHER, SELFPAY ==
--- NOTE | 2022-03-06 14:02 | NEURO_ITS ---
NCS and/or EMG Patient Report Ordering Doctor: Pelon Holt DATE OF SERVICE: 03/06/22 Indication: Right lower extremity radicular pain and continuous paresthesia. No clear associated weakness. History of lumbar spine decompression and more recent spinal stimulator placement. Pain is significantly improved following the stimulator, but the sensory symptoms remain. Evaluate for active lumbosacral radiculopathy. Of note, a prior study was completed in August of 2021. Findings: Nerve conduction studies were performed in the right extremity. The right peroneal motor study recording the extensor digitorum brevis showed a normal amplitude, normal distal latency and normal conduction velocity. No conduction b lock or focal slowing was present across the fibular neck. The right tibial motor study recording the abductor hallucis brevis showed a normal amplitude, normal distal latency and normal conduction velocity. Right sural sensory response showed a normal amplitude and conduction velocity. Right superficial peroneal sensory response showed a normal amplitude and conduction velocity. Right medial plantar response showed a normal amplitude and conduction velocity. Needle EMG of the right lower extremity muscles was performed. The lumbar paraspinal muscles were not sampled due to recent instrumentation. No denervation was present in any muscle. The extensor hallucis longus revealed motor units which were slightly long in duration and polyphasic. Activation was fair. All other motor unit morphology, activation and recruitment patterns were normal. Impression: This is a borderline study. There is no definitive electrophysiologic evidence of lumbosacral radiculopathy, however, the mild reinnervation changes seen in the extensor hallucis longus may be secondary to a mild, chronic, right L5 radiculopathy. There is no active denervation to suggest ongoing axonal injury. In addition, there is no evidence of peripheral neuropathy or peroneal neuropathy in the right lower extremity. Please note: the electrodiagnosis of radiculopathy is made on the basis of excluding peripheral nerve lesions on nerve conduction studies and the needle EMG demonstrating denervation and/or reinnervation in the distribution of one or more nerve roots (i.e., acute and/or chronic axonal loss). Thus, electr odiagnostic studies are insensitive in detecting radiculopathy in the absence of axonal loss (e.g., in the setting of compression resulting in intermittent ischemia or mechanical deformation; or demyelination without axonal loss). Thus, clinical correlation is required in the interpretation of this negative electrodiagnostic study for radiculopathy. Florentino Lewis D.O. Multi Select Codes Neurology Neurology Interp Codes: 89653-50 Musc test done w/n test comp (interp) and 58721-72 [facility] cnd tst 5-6 studies (interp)
== END | disposition home or self-care (01) ==
LOC: PSN 12:43
PROVIDERS: PCP Preventive Medicine Occupational Medicine; Referring Provider Orthopaedic Surgery; Visit Provider Orthopaedic Surgery
DX: M54.17 Radiculopathy, lumbosacral region (principal)
CPT/HCPCS: 95886; 95909

== ENCOUNTER → 2022-03-13 | Outpatient (CLI) | payer OTHER, SELFPAY | END | disposition home or self-care (01) | PROVIDERS: PCP Preventive Medicine Occupational Medicine; Referring Provider Internal Medicine Gastroenterology; Visit Provider Internal Medicine Gastroenterology | DX: Z20.822 Contact with and (suspected) exposure to COVID-19 (principal) | CPT/HCPCS: 87635; C9803; U0003; U0005 ==

== ENCOUNTER 2022-07-31 13:23 | Emergency (ER) | payer OTHER, SELFPAY ==
[2022-07-31 13:24] VITALS: BP 132/86; PULSE 126; RESP 16; TEMP 36.4; O2SAT 99; BMI 19.5
[2022-07-31 13:46] LABS: Basophil# 0.06 X10^3/uL; Basophil% 0.5 % (0-1); Eosinophil# 0.09 X10^3/uL; Eosinophils% 0.8 % (0-5); Hemoglobin 12.4 g/dL (12.0-15.0); Lymphocyte % 22.5 % (19-41); Mean Corp Hgb Conc 32.6 g/dL (32-36); Mean Corpuscular Hgb 33.7 pg (27.0-32.0); Mean Corpuscular Volume 103.3 fL (81-99); Mean Platelet Vol. 8.9 fl (6.2-12.0); Monocyte# 1.09 X10^3/uL; Monocyte% 9.1 % (0-10); NRBC Flagged by Analyzer 0 % (0-5); Neutrophil # 7.98 X10^3/uL (2.7-7.7); Neutrophil % 66.6 % (47-70); Platelet Count 381 K/mm3 (150-450); RBC Distribution Width CV 12.7 % (11.6-14.6); RBC Distribution Width SD 47.9 fl (35.1-43.9); Red Blood Count 3.68 M/mm3 (4.2-5.4)
[2022-07-31 13:59] LABS: Anion Gap 8 (5-15); BUN 8 mg/dL (7-18); BUN/Creat Ratio 6.5 RATIO (10-20); Calcium,Total 9.2 mg/dL (8.5-10.1); Chloride 104 mmol/L (98-107); Creatinine, Serum 1.23 mg/dL (0.55-1.02); EST Glomerular Filtration Rate 49 mL/min (>60); Est Glom Filt Rate - Afr Amer 59 mL/min (>60); Estimated Creatinine Clearance 47.89 ml/min; Glucose 118 mg/dL (74-106); Potassium 3.4 mmol/L (3.5-5.1); Sodium Level 139 mmol/L (136-145)
[2022-07-31 14:18] LABS: Mucous, Urine 0 SEEN /hpf (<or=2+)
[2022-07-31 14:19] LABS: Color, Urine Yellow (Yellow); Glucose, Dipstick Normal (Normal); Ketone-Dipstick Negative (Negative); Leukocyte Esterase-Dipstick 500 /ul (Negative); Nitrite-Dipstick Negative (Negative); Occult Blood-Urine 250 /ul (Negative); Protein-Dipstick 100 mg/dl (Negative); Urine Bilirubin Dipstick Negative (Negative); Urine Clarity Clear (Clear); Urine Urobilinogen Normal (Normal)
[2022-07-31 15:05] LABS: Bacteria 1+ /hpf (None Seen); Red Blood Cells-Urine 25-50 SEEN /hpf (0-5); Squamous Epithelial Cells - UA 0-5 SEEN /hpf (5-10); White Blood Cells 25-50 SEEN /hpf (0-5)
--- NOTE | 2022-07-31 15:40 | ED.RN ---
Patient asked to sign out ama. Discussed this with patient and she states she will stay and go with what has been done but does not want to do the CT d/t cost. Dr Cain is aware.
--- NOTE | 2022-07-31 15:45 | CT_ITS ---
STUDY: CT ABDOMEN AND PELVIS WITH CONTRAST REASON FOR EXAM: Female, 52 years old. rlq abdominal pain RADIATION DOSAGE (If Supplied By Facility): CTDIvol = ( 9.82 ) mGy, DLP = ( 293.44 ) mGycm TECHNIQUE: Transaxial images were obtained from the dome of the diaphragm to the symphysis pubis with oral contrast. IV 100mL Isovue-370 was administered. Sagittal and coronal images were reconstructed. Individualized dose optimization techniques were used for this CT. COMPARISON: 11/11/2021 FINDINGS: The visualized lung bases are unremarkable. The visualized portions of the heart are within normal limits. Normal liver. Normal gallbladder and extrahepatic biliary system. Normal spleen. Normal pancreas. Normal bilateral adrenal glands. Normal right kidney. Normal left kidney. Normal visualized stomach. Normal small intestine. Normal colon. There is non-visualization of the appendix. Normal abdominal aorta. Normal inferior vena cava. Normal retroperitoneum. Normal urinary bladder. Normal abdominal wall. Mild levoscoliosis lumbar spine with degenerative disc disease. Dorsal column spinal stimulator in the lower thoracic spine. CT/Abdomen/Pelvis W IV Cont ONLY IMPRESSION: No acute abnormality. Electronically Signed: Kane Grimes MD at 16:41 EST ,
--- NOTE | 2022-07-31 16:56 | EDS_ITS ---
HPI HPI - GI History of Present Illness Chief Complaint: Abd Pain Narrative Narrative: 52-year-old female presenting with nausea and abdominal pain. She states has been sick with cold-like symptoms for the last couple of days has been coughing a lot. She is concerned she might of pulled something in her abdomen. She also states that it hurts in the right lower quadrant is concern for something different. She is not had a fever. She is able to eat and drink. No urinary symptoms. She does states she has a history of GERD/gastric ulcers but does not take anything for this. She states he does not take anything because she already extremity medicines. PFSH PFS Medical History Anxiety Arthritis Back pain Bipolar disorder Constipation Depression Former smoker h/o teeth removal History of pain when walking Hoarseness Injury of back Sjogren's syndrome Wears dentures Wears glasses Home Medications fluoxetine 20 mg capsule (Prozac) 20 mg PO DAILY mood 10/11/20 [History Last Taken 12/22/20 10:00] quetiapine 300 mg tablet (Seroquel) 300 mg PO QHS bipolar 10/11/20 [History Last Taken 11/10/21 21:00] gabapentin 600 mg tablet 1,200 mg PO TID nerve pain 08/10/21 [History Last Taken 02/10/22] Allergy/AdvReac Type Severity Reaction Status Date / Time No Known Allergies Allergy Verified 07/12/22 08:56 Family History Father Diabetes Mother Thyroid disorder Surgical History H/O hand surgery H/O: hysterectomy History of back surgery History of fusion of lumbar spine History of lumbar fusion Social History household members: spouse Smoking Status: Former smoker alcohol intake: never what type of physical activity do you participate in: none do you feel safe at home: Yes ROS ROS ED Constitutional Constitutional ED: Denies chills or fever(s) ENT ENT ED: Reports rhinorrhea Cardiovascular Cardiovascular: Denies chest pain or palpitations Respiratory/Chest Respiratory/Chest: Denies dyspnea Gastrointestinal Gastrointestinal: Reports abdominal pain and nausea Genitourinary Genitourinary ED: Denies dysuria or hematuria Musculoskeletal Musculoskeletal: Denies arthralgias or back pain Integumentary Denies abscess or Abrasions Neurologic Neurologic: Denies headache(s) or paresthesias Psychiatric Psychiatric: Denies anxiety or depression EXAM Physical Exam Const Vital Signs: 07/31/22 13:24 Temperature 97.6 F L Temperature Source Temporal Pulse Rate 126 H Respiratory Rate 16 Blood Pressure 132/86 H Blood Pressure Mean 101 Pulse Ox 99 Oxygen Delivery Method Room Air Positive well nourished General Appearance ED: Negative for pallor HEENT Reports TM's clear and moist mucous membranes normocephalic Tympanic Membrane ED: Yes TM's clear Eyes PERRL and EOMs intact bilaterally Resp normal respiratory effort Auscultation: Negative for rales, rhonchi or wheezes Cardio regular rate Rate: tachycardic GI Palpation: tender RLQ Back/Spine no CVA tenderness Neuro CN's II-XII intact bilaterally, moves all extremities and no sensory deficits noted Sensorium / Orientation: alert Psych mental status grossly normal Skin General Skin Exam: Negative for jaundice or pallor MDM MDM MDM Narrative Medical decision making narrative: Patient presenting with nausea and right lower quadrant pain. She states she has had a cold last couple days but is not coughing or short of breath. She is not had a fever. She is concerned about her abdominal pain. I did offer her pain medication she declines. CBC to assess for leukocytosis and to check her hemoglobin levels. Leukocytosis of 12. Hemoglobin normal at 12.4. Platelets normal at 381. Creatinine slightly elevated 1.23 and her potassium was slightly low at 3.4. Urinalysis is not consistent with infection. The patient's right lower quadrant pain I did obtain a CT of the abdomen pelvis with IV contrast. Initially the patient refused the CT but after discussion she was amenable to this. Her CT was negative for acute abdominal findings. Patient currently drinking and stating that she has Sjogren's syndrome and she needs to drink that she does not have any difficulty with this. Clinically she is a little dehydrated but if she can drink fluids at home Need IV fluids. She does not feel like she needs IV fluids either. I did offer her Zofran for home and she does want this. Impression: 1. Abdominal pain 2. Nausea 3. Dehydration Lab Data Attestation: I reviewed the patient's lab results. Labs: Laboratory Results - last 24 hr 07/31/22 07/31/22 07/31/22 13:40 13:40 14:09 WBC 12.0 H RBC 3.68 L Hgb 12.4 Hct 38.0 MCV 103.3 H MCH 33.7 H MCHC 32.6 RDW Std Deviation 47.9 H RDW Coeff of Nohelia 12.7 Plt Count 381 MPV 8.9 Immature Gran % (Auto) 0.500 Neut % (Auto) 66.6 Lymph % (Auto) 22.5 [place] % (Auto) 9.1 Eos % (Auto) 0.8 Baso % (Auto) 0.5 Absolute Neuts (auto) 8.0 H Absolute Lymphs (auto) 2.70 Nucleated RBC % 0 Sodium 139 Potassium 3.4 L Chloride 104 Carbon Dioxide 27.0 Anion Gap 8 BUN 8 Creatinine 1.23 H Estim Creat Clear Calc 47.89 Est GFR (MDRD) Af Amer 59 L Est GFR (MDRD) Non-Af 49 L BUN/Creatinine Ratio 6.5 L Glucose 118 H Calcium 9.2 Urine Color Yellow Urine Clarity Clear Urine pH 6.0 Ur Specific [place] 1.010 Urine Protein 100 H Urine Glucose (UA) Normal Urine Ketones Negative Urine Occult Blood 250 H Urine Nitrite Negative Urine Bilirubin Negative Urine Urobilinogen Normal Ur Leukocyte Esterase 500 H Urine RBC 25-50 SEEN Urine WBC 25-50 SEEN Ur Squamous Epith Cells 0-5 SEEN Urine Bacteria 1+ Urine Mucus 0 SEEN Radiography Diagnostic Testing: Clinical Impression(s) from Imaging Studies Abdomen/Pelvis CT 07/31/22 15:45 IMPRESSION: No acute abnormality. Electronically Signed: Kane Grimes MD at 16:41 EST , Discharge Plan Triage Chief Complaint: Abd Pain ED Provider: Nik Cain Dx/Rx/DC Orders Prescriptions: No Action fluoxetine [Prozac] 20 mg capsule 20 mg PO DAILY quetiapine [Seroquel] 300 mg tablet 300 mg PO QHS gabapentin 600 mg tablet 1,200 mg PO TID Label Comments: TAKE 2 TABLETS BY MOUTH three times daily Primary Care Provider: Abhijit Luna Referrals: Abhijit Luna DO [Primary Care Provider] -
[2022-07-31 17:04] VITALS: BP 107/57; PULSE 74; RESP 14; O2SAT 99
[2022-07-31] MEDS: Ondansetron ODT 4 MG Tablet PO (17:11)
== END 2022-07-31 17:13 | disposition home or self-care (01) ==
PROVIDERS: Emergency Provider Student in an Organized Health Care Education/Training Program; PCP Preventive Medicine Occupational Medicine; Visit Provider Student in an Organized Health Care Education/Training Program
DX: R10.9 Unspecified abdominal pain (principal); M35.00 Sjogren syndrome, unspecified; E86.0 Dehydration; R11.0 Nausea; Z87.891 Personal history of nicotine dependence
CPT/HCPCS: 74177; 80048; 81001; 85025; 99284; Q9967; A4216